=== PATIENT | female | born 1965 | race Caucasian/White ===

== ENCOUNTER 2017-07-15 17:40 | Outpatient (CLI) | payer MEDICAID | END 2017-07-15 17:41 | disposition critical access hospital (66) | LOC: EMS 17:40 | PROVIDERS: ATTEND Surgery | DX: M25.551 Pain in right hip (principal); M25.521 Pain in right elbow; W11.XXXA Fall on and from ladder, initial encounter; Y93.H3 Activity, building and construction; Y92.009 Unspecified place in unspecified non-institutional (private) residence as the place of occurrence of the external cause | CPT/HCPCS: A0425; A0427 ==

== ENCOUNTER 2017-07-15 18:11 | Inpatient (IN) | payer MEDICAID ==
[2017-07-15] MEDS ORDERED: HYDROmorphone 1 MG/ML CARPUJECT IVP STA ×2 (18:28→18:45)
[2017-07-15] MEDS ORDERED: SODIUM CHLORIDE 0.9% 1,000 ML IV ONE (18:28)
[2017-07-15] MEDS ORDERED: HYDROmorphone 1 MG/ML CARPUJECT ONE ×2 (18:32→18:42)
--- NOTE | 2017-07-15 18:32 | ED Physician Documentation ---
PD HPI MAJOR TRAUMA - Stated complaint Stated Complaint: R HIP PX - Chief complaint Chief Complaint: Ext Problem - History obtained from History obtained from: Patient, Family, EMS - History of Present Illness Mechanism of injury: Other (Fall from ladder while working at home onto her right side. Tetanus is unknown. She did not hit her head or blackout. No drug or alcohol use today. She complains of severe right elbow and right hip pain. She has not been able to walk or bear weight since the accident. 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 - Present Medications Home Medications: Ambulatory Orders Medication Instructions Recorded Confirmed Mycophenolate Mofetil [Cellcept] 1,000 mg PO DAILY 07/15/17 07/15/17 Prednisone 5 mg PO DAILY 07/15/17 07/15/17 - Allergies Allergies/Adverse Reactions: Allergies Allergy/AdvReac Type Severity Reaction Status Date / Time No Known Drug Allergies Allergy Verified 07/15/17 18:20 - Social History Does the pt smoke?: Yes Smoking Status: Current every day smoker Does the pt drink ETOH?: Yes Does the pt have substance abuse?: No - Family History Family history: reports: Non contributory PD ED PE NORMAL - Vitals Vital signs reviewed: Yes - General General: Alert and oriented X 3, Other (Clearly in pain) - HEENT HEENT: PERRL, EOMI - Neck Neck: Supple, no meningeal sign, No bony TTP, Other (C-collar maintained pending imaging given distracting injury) - Cardiac Cardiac: RRR, No murmur - Respiratory Respiratory: No respiratory distress - Abdomen Abdomen: Non tender - Back Back: No CVA TTP, No spinal TTP - Extremities Extremities: Other (Right leg is externally rotated and slightly shortened with severe tenderness about the hip, she is holding the right elbow completely flexed and there is an abrasion over the olecranon with tenderness there. The wrist and shoulder are nontender and the remainder of her extremities are nontender. She is neurovascularly intact in the distal portions of all of her 4 extremities.) - Neuro Neuro: Alert and oriented X 3, Normal speech - Psych Psych: Normal mood, Normal affect Results - Vitals Vitals: Vital Signs - 24 hr 07/15/17 18:17 Temperature 37.0 C Heart Rate 74 Respiratory 18 Rate Blood Pressure 136/90 H O2 Saturation 99 Oxygen O2 Source Room air - Rads (name of study) 1v chest Radiology: EMP read contemporaneously (Elevation of the left hemidiaphragm) Three-view right elbow Radiology: EMP read contemporaneously (Proximal ulnar fracture of the olecranon with severe depression displacement, There is a lucency, however examination of the area shows no wound that could represent an open fracture, there is an abrasion but this was explored after the x-ray read and there is nothing that could be an open fracture here.) R hip Radiology: EMP read contemporaneously (Intertrochanteric fracture) Cervical spine CT Radiology: EMP read contemporaneously PD MEDICAL DECISION MAKING - ED course ED course: 51-year-old woman with a fall from a ladder and sustained a right intertrochanteric fracture and a right olecranon fracture both of which will probably need surgical fixation. Spoke with Dr. Masters At 7:20 PM, defers to the hospitalist for admission. Spoke with Dr Canela for admit 1930 Departure - Departure Disposition: 66 [facility] DC/Xfer Clinical Impression: Intertrochanteric fracture of right hip Qualifiers: Encounter type: initial encounter Fracture type: closed Fracture alignment: nondisplaced Qualified Code(s): S72.144A - Nondisplaced intertrochanteric fracture of right femur, initial encounter for closed fracture Fracture of right olecranon process Qualifiers: Encounter type: initial encounter Fracture type: closed Qualified Code(s): S52.021A - Displaced fracture of olecranon process without intraarticular extension of right ulna, initial encounter for closed fracture Fall from ladder Qualifiers: Encounter type: initial encounter Qualified Code(s): W11.XXXA - Fall on and from ladder, initial encounter Condition: Stable
--- NOTE | 2017-07-15 19:18 | XRAY Preliminary Report ---
Exam: XR Chest 1 View IMPRESSION: Mild to moderate elevation left hemidiaphragm. Mild left base airspace disease with media l mild consolidation, could be atelectasis. Lung contusion not excluded. [facility] SITE ID: [id number]
--- NOTE | 2017-07-15 19:20 | XRAY Report ---
EXAM: CHEST RADIOGRAPHY EXAM DATE: 07/15/2017 07:06 PM. CLINICAL HISTORY: Fall from height, preop. COMPARISON: None. TECHNIQUE: 1 view. FINDINGS: Lungs/Pleura: Mild to moderate elevation left hemidiaphragm. Mild left base airspace disease with med ial mild consolidation, could be atelectasis. Lung contusion not excluded. No pleural effusion or pne umothorax. No acute bone findings are seen. Mediastinum: Within exam limitations, cardiomediastinal contour is normal. IMPRESSION: Mild to moderate elevation left hemidiaphragm. Mild left base airspace disease with media l mild consolidation, could be atelectasis. Lung contusion not excluded. [facility] Referring Provider Line: [phone] SITE ID: [id number]
--- NOTE | 2017-07-15 19:21 | XRAY Preliminary Report ---
Exam: XR Elbow 3 View RT IMPRESSION: Acute proximal ulnar fracture at the olecranon with severe displacement, diastases of 2.7 cm. Posterior elbow soft tissue swelling and there is posterior elbow lucency, could represent gas a s seen with a open fracture. Acute radial head fracture at the anterior aspect, nondisplaced. [facility] SITE ID: [id number]
--- NOTE | 2017-07-15 19:22 | XRAY Preliminary Report ---
Exam: XR Hip w/Pelvis 2-3V RT IMPRESSION: 1. Intertrochanteric proximal right femur fracture. [facility] SITE ID: [id number]
--- NOTE | 2017-07-15 19:23 | XRAY Report ---
EXAM: RIGHT ELBOW RADIOGRAPHY EXAM DATE: 07/15/2017 07:08 PM. CLINICAL HISTORY: Right elbow injury. COMPARISON: None. TECHNIQUE: 3 views. FINDINGS: Acute proximal ulnar fracture at the olecranon with severe displacement, diastases of 2.7 c m. Posterior elbow soft tissue swelling and there is posterior elbow lucency, could represent gas as seen with a open fracture. Acute radial head fracture at the anterior aspect, nondisplaced. Elbow joint effusion. No gross dislocation. IMPRESSION: Acute proximal ulnar fracture at the olecranon with severe displacement, diastases of 2.7 cm. Posterior elbow soft tissue swelling and there is posterior elbow lucency, could represent gas a s seen with a open fracture. Acute radial head fracture at the anterior aspect, nondisplaced. [facility] Referring Provider Line: [phone] SITE ID: [id number]
--- NOTE | 2017-07-15 19:25 | XRAY Report ---
EXAM: RIGHT HIP AND PELVIS RADIOGRAPHY EXAM DATE: 07/15/2017 07:08 PM. HISTORY: Injury with hip deformity. COMPARISONS: None. TECHNIQUE: 1 view of the pelvis and 1 view of the hip. FINDINGS: Bones: Positive for an intertrochanteric fracture of the proximal right femur. Joints: Joint space and alignment appears satisfactory. Soft Tissues: Normal. No soft tissue swelling. IMPRESSION: 1. Intertrochanteric proximal right femur fracture. [facility] Referring Provider Line: [phone] SITE ID: [id number]
--- NOTE | 2017-07-15 19:26 | CT Preliminary Report ---
Exam: CT Cervical Spine W/O IMPRESSION: No fracture or subluxation of cervical spine. [facility] SITE ID: [id number]
[2017-07-15] MEDS ORDERED: LORazepam 2 MG/ML SYRINGE ONE (19:27)
--- NOTE | 2017-07-15 19:29 | CT Report ---
EXAM: CT CERVICAL SPINE WITHOUT CONTRAST DATE: 07/15/2017 07:10 PM HISTORY: Fall from height, distracting injury. COMPARISONS: None. TECHNIQUE: Thin-section axial images were acquired of the cervical spine without contrast. Post-proce ssing: Coronal and sagittal reformats. Other: None. In accordance with CT protocol optimization, one or more of the following dose reduction techniques w ere utilized for this exam: automated exposure control, adjustment of mA and/or KV based on patient s ize, or use of iterative reconstructive technique. FINDINGS: Alignment: Normal. No scoliosis or spondylolisthesis. Bones: No fracture or bone lesion. Interspace Levels/Facets: Disk height is maintained. Facet joints appear normal in alignment. Facet joints appear normal. No si gnificant bony central spinal canal stenosis. Musculature: Normal. No fatty atrophy. Other: The paravertebral and prevertebral soft tissues are normal. The lung apices are clear. IMPRESSION: No fracture or subluxation of cervical spine. [facility] Referring Provider Line: [phone] SITE ID: [id number]
[2017-07-15 19:30] LABS: BASOPHILS # (AUTO) 0.1 10^3/uL (0.0-0.1); BASOPHILS % (AUTO) 0.5 %; EOSINOPHILS % (AUTO) 0.2 %; HCT - HEMATOCRIT 33.1 % (37.0-47.0); LYMPHOCYTES # (AUTO) 1.4 10^3/uL (1.5-3.5); LYMPHOCYTES % (AUTO) 11.5 %; MEAN CORPUSCULAR HEMOGLOBIN 31.5 pg (27.0-31.0); MEAN CORPUSCULAR HGB CONC 33.3 g/dL (32.0-36.0); MEAN CORPUSCULAR VOLUME 94.8 fL (81.0-99.0); MONOCYTES # (AUTO) 0.7 10^3/uL (0.0-1.0); MONOCYTES % (AUTO) 6.2 %; NEUTROPHILS # (AUTO) 9.8 10^3/uL (1.5-6.6); NEUTROPHILS % (AUTO) 81.6 %; RED BLOOD COUNT 3.49 10^6/uL (4.20-5.40); RED CELL DISTRIBUTION WIDTH 13.3 % (12.0-15.0)
[2017-07-15 19:39] LABS: INR 1.2 (0.8-1.2); PT - PROTHROMBIN TIME 13.4 secs (9.9-12.6)
[2017-07-15] MEDS ORDERED: ONDANSETRON 4 MG/2 ML VIAL IVP STA (19:45)
[2017-07-15] MEDS ORDERED: LORazepam 2 MG/ML SYRINGE IVP STA (19:45)
[2017-07-15 19:47] LABS: ALBUMIN/GLOBULIN RATIO 1.9 (1.0-2.2); BILIRUBIN,TOTAL 1.1 mg/dL (0.2-1.0); CALCIUM 8.5 mg/dL (8.5-10.3); CREATININE 0.7 mg/dL (0.4-1.0); POTASSIUM 3.1 mmol/L (3.5-5.0); TOTAL PROTEIN 6.3 g/dL (6.7-8.2)
[2017-07-15] MEDS ORDERED: ONDANSETRON 4 MG/2 ML VIAL ONE (20:09)
[2017-07-15] MEDS ORDERED: POTASSIUM BICARB 25 MEQ TABLET PO STA (20:11)
[2017-07-15] MEDS ORDERED: ZOLPIDEM 5 MG TABLET PO PRN (20:19)
[2017-07-15] MEDS ORDERED: POTASSIUM BICARB 25 MEQ TABLET PO ONE (20:48)
[2017-07-15] MEDS ORDERED: POTASSIUM CHLORIDE 20 MEQ TABLET PO SCH (21:27)
[2017-07-15] MEDS: oxyCODONE 5 MG TABLET PO PRN (22:11)
[2017-07-15] MEDS: MYCOPHENOLATE MOFETIL 250 MG CAPSULE PO SCH (22:12)
[2017-07-15] MEDS: POTASSIUM CHLOR 10 MEQ/100 ML 100 ML IV SCH (22:35)
[2017-07-15] MEDS: SODIUM CHLORIDE FLUSH 0.9% 10 ML SYRINGE IVP SCH (22:37)
[2017-07-15] MEDS ORDERED: MAGNESIUM SULFATE 2 GRAM 50 ML IV SCH (23:02)
[2017-07-15] MEDS: LACTATED RINGERS 1,000 ML IV SCH (23:59)
[2017-07-15] MEDS: SODIUM CHLORIDE FLUSH 0.9% 10 ML SYRINGE IVP PRN (23:59)
[2017-07-16] MEDS: MORPHINE 2 MG/ML SYRINGE IVP PRN ×6 (00:04→09:45)
[2017-07-16] MEDS: POTASSIUM CHLOR 10 MEQ/100 ML 100 ML IV SCH (00:30)
[2017-07-16] MEDS: ONDANSETRON 4 MG/2 ML VIAL IVP PRN ×3 (00:33→19:10)
[2017-07-16] MEDS: SODIUM CHLORIDE FLUSH 0.9% 10 ML SYRINGE IVP PRN ×2 (01:12→07:54)
[2017-07-16] MEDS ORDERED: IOPAMIDOL-300 100 ML VIAL IVP ONE (01:32)
--- NOTE | 2017-07-16 01:36 | HISTORY & PHYSICAL EXAMINATION ---
DATE OF ADMISSION: 07/15/2017 CHIEF COMPLAINT: Right-sided hip pain and elbow pain. HISTORY OF PRESENT ILLNESS: The patient is a 51-year-old white female with past medical history of myasthenia gravis, which was diagnosed about 2 years ago, the patient had been under the care of neurologist and has been taking CellCept and small dose prednisone. She underwent thymectomy in 03/02/2016. The patient was in her usual state of health, up to the afternoon of admission, at which time she fell off a ladder and injured her right side. In particular, she suffered a right intertrochanteric hip fracture and an olecranon fracture as well. For both of these fractures she is an operative candidate. The ER physician notified, orthopedic surgeon, Dr. Masters and initially I was told that surgery was not planned immediately and the patient would be evaluated by orthopedic surgeon, Dr. Stout, who would then decide about the timing of surgical management. In any case, I evaluated this patient for her medical problems, admitted her to the hospital and I evaluated her for presurgical clearance. Interviewing the patient was difficult as she received pain medications in the ER and was falling asleep, was quite sedated. The patient's significant other was at the bedside. He was very knowledgeable about the patient's medical issues and provided detailed history. In any case, the significant other and the patient both confirmed and provided history regarding myasthenia gravis; it was diagnosed 2 years ago. The patient has never been intubated and never required hospitalization. However, she had some episodes of dysphagia and mild bulbar symptoms in the past. Last time about a week ago, she had mild dyspnea. She had been on higher prednisone doses; however, she has been titrating down and currently she takes 5 mg daily. She also takes CellCept regularly. Currently , she does not have focal neurologic symptoms and her disease is considered stable. Last time she followed up with her neurologist was in 04/2017. Regarding the circumstance of admission, the patient denied shortness of breath , syncope, chest pain, fever, nausea, vomiting, or any change in her usual state of health. She reported that the fall was clearly mechanical fall, losing balance and falling off a ladder. Regarding the ER course, the patient was received with stable vital signs. However, during the ER stay, she had a hypoxic episode and required supplemental oxygen and at some point her room air oxygen saturation was 88% and subsequently she required 4 L nasal cannula to maintain oxygen saturation in the mid to high 90s. Notably, she did receive increased doses of Dilaudid, given her uncontrolled pain. Regarding her hemodynamics, she had stable heart rate in the 70s, blood pressure was 110/70. Temperature was 37 Celsius. Laboratories showed a slightly elevated white blood cell count 12.0, hemoglobin of 11. Coagulation studies are slightly up with PT of 13.4 and INR 1.2. Potassium was 3.1, carbon dioxide 20. Creatinine was normal at 0.7. Glucose was 106. I an ordered an EKG, which I reviewed for preoperative clearance. It showed sinus rhythm without acute ST abnormality. Chest x-ray showed infiltrates and elevation of the left hemidiaphragm and per the radiology read it was most likely atelectasis, but lung contusion or mild consolidation could not be excluded. The ER physician ordered a CT of the spine as well to clear the patient for cervical spine injury and the CT scan showed no abnormality. X- rays of hip, pelvis and elbow showed the above-mentioned fractures. ALLERGIES: NO KNOWN DRUG ALLERGIES. PAST MEDICAL HISTORY: Myasthenia gravis. Please see details listed above. HOME MEDICATIONS: Included CellCept and prednisone. SOCIAL HISTORY: The patient smokes cigarettes and drinks an alcoholic beverage almost every day. FAMILY HISTORY: Negative for myasthenia gravis. REVIEW OF SYSTEMS: The patient was a poor historian as she was sedated; as much as I could obtain the review other than the mechanical fall and musculoskeletal pain she offered no complaints and a 12-point review was negative. PHYSICAL EXAMINATION: VITAL SIGNS: Listed above. GENERAL: The patient is a well-developed female who looks younger than her age. During my exam, she was somnolent, fell back to sleep easily. CARDIOVASCULAR: S1, S2, regular rate and rhythm. No pathologic murmur. RESPIRATORY: Symmetric excursion of the chest. No obvious chest wall trauma. Good air entry throughout. Respiratory rate during my bedside exam was around 10. The patient was hypoventilating and was sedated; she appeared with appropriate airway protection. ABDOMEN: Soft, benign, nontender. Bowel tones hypoactive. LYMPH: Right lower extremity swollen, otherwise no lymphedema. EXTREMITIES: Right lower extremity and right upper extremity injury and fractures with decreased range of motion. The right lower extremity was swollen ; However, peripheral pulses were palpable on all 4 extremities. NEUROLOGICAL: Sedated but arousable. Nonfocal. PSYCH: Cooperative. SKIN: No jaundice, no pallor. ASSESSMENT AND PLAN: Active issues/diagnoses. 1. Mechanical fall resulting in right olecranon and right intertrochanteric hip fractures, will require surgical repair. 2. Hypoxia: a. It is most likely secondary to opiate use. It is reassuring that on admission , the patient had a normal oxygen saturation. b. Hypoventilation secondary to oversedation. c. Chest x-ray was abnormal, raising the possibility of consolidation versus lung contusion. That will need to be further followed up. 3. History of myasthenia gravis on chronic prednisone therapy, which was recently titrated, I actually was told by the patient's significant other that titration of the prednisone was faster than recommended by neurologist and the patient should likely be on higher dose. Either way during the perioperative period, this patient would likely have need for stress dose IV steroids per standard of care. Would give 50 mg IV hydrocortisone stress dose just prior to the surgery and we would give 25 mg q.8h. for 24 hours in the postoperative period to avoid relative adrenal insufficiency. Regarding other issues of myasthenia gravis, the patient did not report recent history of bulbar symptoms ; however, the patient definitely has a perioperative aspiration risk. Regarding the immunosuppressant medication, the CellCept should be continued and held only on the day of the surgery. Additional recommendation would be to have optimal electrolyte balance, which would include potassium above 4, phosphorus above 4 and magnesium above 2. 4. Abnormal electrolytes including hypokalemia, we will replace potassium. 5. Encephalopathy, altered mental status. This is medication induced secondary to opiates given in the ER. There is no history of head injury and the patient was neurologically nonfocal. If her mental status remains an issue, then I would probably scan her head to make sure that she does not have intracranial hemorrhage secondary to falling off a ladder. PLAN AND ORDERS: 1. I admitted the patient as inpatient under the medical service and orthopedic surgeon will consult. In fact Dr. Nieto contacted me and stated that surgery will be done in the morning of 07/16/2017. Prior to surgery, I would aim to optimize electrolyte balance. I would order a stress dose of steroids. I expect that the patient will be evaluated thoroughly by the anesthesiologist concerning her myasthenia gravis history. In addition, I will order a CT scan of the chest to make sure that there is no lung contusion which could lead to further complications. 2. We will monitor the patient for optimal sedation and for hypoventilation. 3. Aspiration precautions. 4. Diet will be gluten free and dairy free. After midnight. The patient will be n.p.o. expecting surgery the next day. 5. DVT prophylaxis. 6. Regarding preoperative clearance there is no cardiac contraindication. The patient has a risk regarding her myasthenia gravis which would include respiratory muscle problems and difficulty weaning off the ventilator. That obviously will be a post-surgical issue to handle if happens. To optimize her situation, we will give stress dose IV steroid prior to the surgery and depending on the clinical course stress dose steroids can be continued for another 24 hours. That will be deferred to the daytime team to decide. CODE STATUS: FULL CODE. Time spent in the care of this patient was 70 minutes. JOB #: [id number] EXT JOB #:[id number] JOHNATHAN
--- NOTE | 2017-07-16 02:55 | CT Preliminary Report ---
Exam: CT Chest W/ IMPRESSION: 1. Small left upper lobe posterior laterally located pulmonary contusion noted. 2. There is medium-sized left lower lobe streaky airspace disease and small streaky right lower lobe airspace disease. These may be from atelectasis. Aspiration and/or developing pneumonia difficult to exclude. 3. Subtle tiny lucency within the anterior aspect of the left upper chest felt to represent artifact. Cannot exclude a subtle pneumothorax with certainty. Follow-up expiratory chest x-ray recommended at 6 hours. 4. Subtle deformity of the posterior aspect of the left second rib at the costovertebral junction, po tentially a nondisplaced fracture. [facility] SITE ID: [id number]
--- NOTE | 2017-07-16 03:01 | CT Report ---
EXAM: CT CHEST EXAM DATE: 07/16/2017 01:41 AM. CLINICAL HISTORY: Fall, abnormal opacity within the left lung base region. Further assessment and aiyana racterization. COMPARISONS: Chest x-ray 07/15/2017 TECHNIQUE: Routine helical CT imaging was performed through the chest. IV contrast: 100 mL Isovue-300 . Reconstructions: Coronal and sagittal. In accordance with CT protocol optimization, one or more of the following dose reduction techniques w ere utilized for this exam: automated exposure control, adjustment of mA and/or KV based on patient s ize, or use of iterative reconstructive technique. FINDINGS: Lungs and Pleura: Medium-sized streaky left lower lobe airspace disease and small streaky right lower lobe airspace disease are noted. There is mild subpleural groundglass opacity within the midportion of the left upper lobe. Equivocal tiny anterior left upper chest pneumothorax. I favor artifact from the adjacent high density contrast in ribs. Central Airways: Visualized central airways are without suspicious filling defects. Chest Wall: No significant abnormality. Thyroid: No significant abnormality. Mediastinum: No significant abnormality. Heart: Normal in size. No significant pericardial effusion. Aorta: Normal caliber. Upper Abdomen: Nonspecific moderate distention of the gallbladder. No evident calcified stones. This could be due to fasting. There is a somewhat heterogeneous low-density abnormality within the central aspect of the liver in segment 8 measuring 2.1 cm (image 48 series 3). Bones: No suspicious bony lesions evident. Nondisplaced fracture left second rib fracture (image 6 se sara 4) suspected. IMPRESSION: 1. Small left upper lobe posterior laterally located pulmonary contusion noted. 2. There is medium-sized left lower lobe streaky airspace disease and small streaky right lower lobe airspace disease. These may be from atelectasis. Aspiration and/or developing pneumonia difficult to exclude. 3. Subtle tiny lucency within the anterior aspect of the left upper chest felt to represent artifact. Cannot exclude a subtle pneumothorax with certainty. Follow-up expiratory chest x-ray recommended at 6 hours. 4. Subtle deformity of the posterior aspect of the left second rib at the costovertebral junction, po tentially a nondisplaced fracture. [facility] Referring Provider Line: [phone] SITE ID: [id number]
[2017-07-16] MEDS: AMPICILLIN/SULBACTAM 1.5 GM in SODIUM CHLORIDE 0.9% MINIBAG 100 ML IV SCH ×3 (05:26→18:12)
[2017-07-16] MEDS: SODIUM CHLORIDE FLUSH 0.9% 10 ML SYRINGE IVP SCH ×3 (05:27→21:12)
[2017-07-16] MEDS: PANTOPRAZOLE 40 MG TABLET PO SCH (05:45)
[2017-07-16 06:59] LABS: BILIRUBIN,URINE NEGATIVE (NEGATIVE); PH,URINE 6.5 PH (5.0-7.5)
[2017-07-16 08:11] LABS: WBC,URINE >25 /HPF (0-5)
[2017-07-16 08:12] LABS: UR CULTURE IF IND INDICATED
[2017-07-16] MEDS: POLYETHYLENE GLYCOL 3350 17 GM PACKET PO SCH (09:12)
[2017-07-16] MEDS: ENOXAPARIN 40 MG/0.4 ML SYRINGE SUBQ SCH (09:12)
[2017-07-16] MEDS: MYCOPHENOLATE MOFETIL 250 MG CAPSULE PO SCH ×2 (10:29→21:18)
[2017-07-16] MEDS: predniSONE 5 MG TABLET PO SCH (10:29)
[2017-07-16] MEDS ORDERED: HYDROCORTISONE SUCCINATE 100 MG/2 ML VIAL IVP SCH (10:30)
--- NOTE | 2017-07-16 10:43 | XRAY Report ---
FRONTAL CHEST: 07/16/2017 CLINICAL INDICATION: Followup, status post trauma. COMPARISON: CT of 07/16/2017, plain film of 07/15/2017. FINDINGS: Frontal expiratory view of the chest demonstrates no pneumothorax. Basilar atelectasis is present. Pulmonary contusion seen on CT is poorly visualized on plain film, due to expiratory techniq ue. IMPRESSION: NO EVIDENCE OF PNEUMOTHORAX. JOB #: [id number] EXT JOB #:[id number]
[2017-07-16] MEDS ORDERED: HYDROmorphone 1 MG/ML CARPUJECT IVP STA ×2 (11:27→11:33)
[2017-07-16 12:16] LABS: HCG UR QUAL NEGATIVE
[2017-07-16] MEDS ORDERED: KETOROLAC 30 MG/ML VIAL IVP ONE (13:09)
[2017-07-16] MEDS ORDERED: ePHEDrine 50 MG/ML VIAL IVP ONE (13:09)
[2017-07-16] MEDS ORDERED: ACETAMINOPHEN 1,000 MG/100 ML 100 ML IV ONE (13:09)
[2017-07-16] MEDS ORDERED: fentaNYL 100 MCG/2 ML VIAL IVP ONE (13:09)
[2017-07-16] MEDS ORDERED: ONDANSETRON 4 MG/2 ML VIAL IVP ONE (13:09)
[2017-07-16] MEDS ORDERED: HYDROCORTISONE SUCCINATE 100 MG/2 ML VIAL IVP ONE (13:09)
[2017-07-16] MEDS ORDERED: BUPIVACAINE 0.5%-EPI 1:200000 PF 30 ML VIAL SUBQ ONE ×3 (13:15→15:11)
[2017-07-16] MEDS ORDERED: LACTATED RINGERS 1,000 ML IV ONE ×4 (13:21→15:14)
--- NOTE | 2017-07-16 16:28 | XRAY Preliminary Report ---
Exam: XR Elbow 2 View RT IMPRESSION: 1. ORIF olecranon fracture. [facility] SITE ID: [id number]
--- NOTE | 2017-07-16 16:31 | XRAY Report ---
EXAM: RIGHT ELBOW RADIOGRAPHY EXAM DATE: 07/16/2017 11:20 AM. CLINICAL HISTORY: Right elbow fracture fixation. COMPARISON: Right elbow series history. TECHNIQUE: 2 views (4 images), intraoperative. Fluoroscopy time: 26 seconds. FINDINGS: Interval ORIF with placement of compression plate and multiple screws bridging the olecrano n fracture to gross anatomic position. Stable subtle impaction fracture of ventral radial neck. IMPRESSION: 1. ORIF olecranon fracture. [facility] Referring Provider Line: [phone] SITE ID: [id number]
--- NOTE | 2017-07-16 16:32 | XRAY Preliminary Report ---
Exam: XR Hip w/Pelvis 2-3V RT IMPRESSION: 1. ORIF intertrochanteric fracture. [facility] SITE ID: [id number]
--- NOTE | 2017-07-16 16:34 | XRAY Report ---
EXAM: RIGHT HIP RADIOGRAPHY EXAM DATE: 07/16/2017 04:07 PM. CLINICAL HISTORY: ORIF right hip fracture. COMPARISON: 07/15/2017. TECHNIQUE: 2 views (4 images), intraoperative. Fluoroscopy time: 37 seconds. FINDINGS: Interval reduction and placement of long antegrade intramedullary nail with a proximal inte rlocking device to the femoral head bridging the intertrochanteric fracture to gross anatomic alignme nt. IMPRESSION: 1. ORIF intertrochanteric fracture. [facility] Referring Provider Line: [phone] SITE ID: [id number]
--- NOTE | 2017-07-16 16:54 | OPERATIVE REPORT ---
Operative Report - General Admit Date: 07/15/17 Procedure Date: 07/16/17 Planned Procedure: 1. IM Nailing R Intertrochanteric Fracture 2. ORIF R Olecranon Fracture Pre-Op Diagnosis: 1. R Hip Intertrochanteric Fx 2. Displaced, Closed Right Olecranon Fx Procedure Performed: Same. Post Op Diagnosis: Same - Procedure Note Primary Surgeon: Shilo Nieto MD Anesthesia Provider: Lana Adam CRNA Anesthesia Technique: General ET tube, Local Pathology: Same. IV Fluids (mL): 2,000 (LR) Estimated Blood Loss (mL): 150 Complications: None. - Other Other Information/Narrative: Disposition: PACU >> Med Surg Condition: Stable Implants: 1. Right Hip: Amanuel Natural Nail, 11.5 x 400 mm nail. 6.5 x 85 mm Lag Screw. Right Olecranon: Acumed Olecranon Plate 4 hole locking w/ appropriate screws.
--- NOTE | 2017-07-16 17:07 | CONSULTATION NOTE ---
Referring Provider Name of Referring Provider:: Senthil Babcock MD Consult Date: 07/16/17 Chief Complaint - Chief Complaint Chief Complaint: Fall from ladder resulting in pelvis, R Hip, and R Elbow Injuries History of Present Illness - Admitted From Admitted From:: ED - History Obtained From Records Reviewed: ED History obtained from: Patient and significant other - History of Present Illness HPI Comment/Other: 51 yo female was assisting in raising a steel cross beam on a ladder when she lost her balance and fell, sustaining injuries to her Right Hip , Elbow, pelvis , and Wrist. She was brought by EMS to [facility] ED where radiographic evaluation was performed revealin. Right Superior and Inferior Pubic rami fractures, closed, nondisplaced. 2. Right Hip Inrtertrochanteric Fracture. 3. Displaced, closed Right Olecranon Fracture. Patient denies Loss of Consciousness or other significant injuries. She was splinted and stabilized and admitted to the Hospitalist Service with consultation to Orthopaedic Surgery to evaluate her musculoskeletal injuries. History - Past Medical History Endocrine/Autoimmune: reports: Other (Myesthenia Gravis, s/p Thymectomy and on chronic seroids.) Other Past Medical History: myesthenia gravis - Past Surgical History /[employer]: reports: Tubal ligation Other past surgical history: Thymectomy - Family & Social History Living arrangement: At home Living Situation: With spouse/s.o. - Substance History Use: Uses substance without health or social issues: NONE Abuse: Recurrent use of substance despite neg consequences: NONE - POLST Patient has POLST: No POLST Status: Full Code Meds/Allgy - Home Medications Home Medications: Ambulatory Orders Medication Instructions Recorded Confirmed Mycophenolate Mofetil [Cellcept] 1,500 mg PO DAILY 07/15/17 07/15/17 Mycophenolate Mofetil 1,000 mg PO DAILY PM 07/15/17 07/15/17 [Mycophenolate Mofetil] Prednisone 5 mg PO DAILY 07/15/17 07/15/17 - Allergies Allergies/Adverse Reactions: Allergies Allergy/AdvReac Type Severity Reaction Status Date / Time No Known Drug Allergies Allergy Verified 07/15/17 18:20 Review of Systems - Constitutional Constitutional: reports: Fatigue, Weakness - Eyes Eyes: reports: Blurred vision - Musculoskeletal Musculoskeletal: reports: Muscle weakness - All Other Systems All Other Systems: reports: Reviewed and negative Exam - Vital Signs Reviewed Vital Signs: Yes Vital Signs: Vital Signs x48h Pulse Ox 07/16/17 16:55 98 07/16/17 16:50 100 07/16/17 16:46 100 07/16/17 16:40 100 07/16/17 16:35 100 07/16/17 16:30 98 07/16/17 16:29 98 - Physical Exam General Appearance: positive: Moderate distress Eyes Bilateral: positive: Normal inspection ENT: positive: ENT inspection nml Neck: positive: Nml inspection Respiratory: positive: No respiratory distress, Breath sounds nml Cardiovascular: positive: Regular rate & rhythm Peripheral Pulses: positive: 2+ Abdomen: positive: Non-tender, Nml bowel sounds, No distention. negative: Guarding Back: positive: Nml inspection Skin: positive: Color nml, No rash, Warm, Dry Extremities: positive: Other (tenderness with external rotation deformity of right hip. Marked echymosis and tenderness with 2+ swellinjhg about the Right Elbow.). negative: Pedal edema, Calf tenderness, May's sign/cords Neurologic/Psychiatric: positive: Oriented x3, Motor nml, Sensation nml, Mood/ affect nml Conclusion/Plan - Diagnosis Diagnosis: 1. Right Hip Intertrochanteric Fracture, 3 part, closed, displaced. 2. Closed, displaced Right Olecranon Fracture. 3. Closed, Nondisplaced Right superior and Inferior pubic Rami Fractures. 4. Right Wrist Injury. 5. Fall from Ladder. - Plan Plan: To OR for ORIF Right Olecranon Fracture and Cephallomedullary Nailing Right Intertrochanteric Fracture. - Lab Results Lab results reviewed: Yes Fish Bones: 07/15/17 19:18 07/15/17 19:18 - Diagnostic Imaging Results Diagnostic Imaging Results: positive: Read independently
[2017-07-16] MEDS ORDERED: ACETAMINOPHEN 325 MG TABLET PO PRN (17:19)
[2017-07-16] MEDS ORDERED: ACETAMINOPHEN 1,000 MG/100 ML 100 ML IV PRN (17:22)
[2017-07-16] MEDS: HYDROmorphone PCA 10 MG IV PRN (18:38)
--- NOTE | 2017-07-16 18:38 | PROVIDER PROGRESS NOTE ---
Assessment/Plan - Problem List (1) Myasthenia gravis Assessment/Plan: stable currently (2) Pulmonary contusion Qualifiers: Encounter type: subsequent encounter Assessment/Plan: No SOB, even after anesthesia. Continue to monitor (3) Intertrochanteric fracture of right hip Qualifiers: Encounter type: subsequent encounter Fracture type: closed Fracture alignment: nondisplaced Qualified Code(s): S72.144A - Nondisplaced intertrochanteric fracture of right femur, initial encounter for closed fracture Assessment/Plan: Had ORIF today (4) Fracture of right olecranon process Qualifiers: Encounter type: subsequent encounter Fracture type: closed Qualified Code (s): S52.021A - Displaced fracture of olecranon process without intraarticular extension of right ulna, initial encounter for closed fracture Assessment/Plan: Had orthopedic surgery today - Current Meds Current Meds: Current Medications Generic Name Dose Route Start Last Admin Trade Name Freq PRN Reason Stop Dose Admin Enoxaparin Sodium 40 mg 07/16/17 09:00 07/16/17 09:12 Lovenox SUBQ Not Given DAILY WARREN Lactated Ringer's 1,000 mls @ 70 mls/hr 07/15/17 23:45 07/15/17 23:59 Lr IV 70 mls/hr .[id number] WARREN Administration Mycophenolate Mofetil 1,500 mg 07/15/17 21:00 07/15/17 22:12 PO 1,500 mg QPM WARREN Administration Mycophenolate Mofetil 1,000 mg 07/16/17 09:00 07/16/17 10:29 PO Not Given DAILY WARREN Ondansetron HCl 4 mg 07/15/17 20:19 07/16/17 05:36 Zofran Inj IVP 4 mg Q6HR PRN Administration Nausea / Vomiting Oxycodone HCl 5 mg 07/15/17 20:19 07/15/17 22:11 Roxicodone PO 5 mg Q4HR PRN Administration Pain 5 to 7 Pantoprazole Sodium 40 mg 07/16/17 07:00 07/16/17 05:45 Protonix PO Not Given QDAC WARREN Polyethylene Glycol 17 gm 07/16/17 09:00 07/16/17 09:12 Miralax PO Not Given DAILY WARREN Prednisone 5 mg 07/16/17 09:00 07/16/17 10:29 Deltasone PO Not Given DAILY WARREN Sodium Chloride 10 ml 07/15/17 20:19 07/16/17 07:54 Normal Saline Flush 0.9% IVP 10 ml PRN PRN Administration NEEDED PER PROVIDER ORDERS Sodium Chloride 10 ml 07/15/17 22:00 07/16/17 13:42 Normal Saline Flush 0.9% IVP Not Given Q8HR WARREN - Lab Result Fish Bone Diagrams: 07/15/17 19:18 07/15/17 19:18 Subjective - Subjective Patient Reports: Feeling Better Nursing Reports: Other (S/P ORIF and elbow surgery) Objective Vital Signs: Vital Signs - 24 hr 07/15/17 07/15/17 07/16/17 20:32 21:20 00:08 Temperature 36.8 C 36.8 C Heart Rate 74 Heart Rate [ 96 71 Radial] Respiratory 20 8 L 18 Rate Blood Pressure 102/67 Blood Pressure 105/64 123/78 [Left Brachial artery] O2 Saturation 100 100 100 07/16/17 07/16/17 07/16/17 05:49 08:40 16:29 Temperature 37.0 C 37.2 C Heart Rate Heart Rate [ 74 64 Radial] Respiratory 18 16 Rate Blood Pressure Blood Pressure 99/81 H 104/61 [Left Brachial artery] O2 Saturation 99 95 98 07/16/17 07/16/17 07/16/17 16:30 16:35 16:40 Temperature Heart Rate Heart Rate [ Radial] Respiratory Rate Blood Pressure Blood Pressure [Left Brachial artery] O2 Saturation 98 100 100 07/16/17 07/16/17 07/16/17 16:46 16:50 16:55 Temperature Heart Rate Heart Rate [ Radial] Respiratory Rate Blood Pressure Blood Pressure [Left Brachial artery] O2 Saturation 100 100 98 07/16/17 07/16/17 07/16/17 17:00 17:05 17:11 Temperature Heart Rate Heart Rate [ Radial] Respiratory Rate Blood Pressure Blood Pressure [Left Brachial artery] O2 Saturation 99 99 99 07/16/17 07/16/17 07/16/17 17:15 17:26 17:32 Temperature Heart Rate Heart Rate [ Radial] Respiratory Rate Blood Pressure Blood Pressure [Left Brachial artery] O2 Saturation 99 100 100 07/16/17 07/16/17 17:47 18:09 Temperature 36.7 C 36.6 C Heart Rate Heart Rate [ 81 82 Radial] Respiratory 16 20 Rate Blood Pressure Blood Pressure 123/69 109/63 [Left Brachial artery] O2 Saturation 100 97 Oxygen O2 Source Nasal cannula I&O (Last 24 Hrs): Intake and Output Totals x24h 07/14/17 07/15/17 07/16/17 23:59 23:59 23:59 Intake Total 1004 Output Total 1200 Balance -196 General: Other (Lethargic from anesthesia) HEENT: Mucous membr. moist/pink Neck: Supple Neuro: Oriented Times 3 Cardiovascular: Regular rate Respiratory: No respiratory distress Extremities: No edema - Results Results: Laboratory Results WBC 12.0 x10^3/uL (4.8-10.8) H 07/15/17 19:18 RBC 3.49 10^6/uL (4.20-5.40) L 07/15/17 19:18 Hgb 11.0 g/dL (12.0-16.0) L 07/15/17 19:18 Hct 33.1 % (37.0-47.0) L 07/15/17 19:18 MCV 94.8 fL (81.0-99.0) 07/15/17 19:18 MCH 31.5 pg (27.0-31.0) H 07/15/17 19:18 MCHC 33.3 g/dL (32.0-36.0) 07/15/17 19:18 RDW 13.3 % (12.0-15.0) 07/15/17 19:18 Plt Count 238 10^3/uL (130-450) 07/15/17 19:18 MPV 7.0 fL (7.9-10.8) L 07/15/17 19:18 Neut # 9.8 10^3/uL (1.5-6.6) H 07/15/17 19:18 Lymph # 1.4 10^3/uL (1.5-3.5) L 07/15/17 19:18 [place] # 0.7 10^3/uL (0.0-1.0) 07/15/17 19:18 Eos # 0.0 10^3/uL (0.0-0.7) 07/15/17 19:18 Baso # 0.1 10^3/uL (0.0-0.1) 07/15/17 19:18 Absolute Nucleated RBC 0.00 x10^3/uL 07/15/17 19:18 Nucleated RBCs 0.0 /100WBC 07/15/17 19:18 PT 13.4 secs (9.9-12.6) H 07/15/17 19:18 INR 1.2 (0.8-1.2) 07/15/17 19:18 Sodium 135 mmol/L (135-145) 07/15/17 19:18 Potassium 3.1 mmol/L (3.5-5.0) L 07/15/17 19:18 Chloride 105 mmol/L (101-111) 07/15/17 19:18 Carbon Dioxide 20 mmol/L (21-32) L 07/15/17 19:18 Anion Gap 10.0 (6-13) 07/15/17 19:18 BUN 12 mg/dL (6-20) 07/15/17 19:18 Creatinine 0.7 mg/dL (0.4-1.0) 07/15/17 19:18 Estimated GFR (MDRD) 88 (>89) L 07/15/17 19:18 Glucose 106 mg/dL (70-100) H 07/15/17 19:18 Calcium 8.5 mg/dL (8.5-10.3) 07/15/17 19:18 Phosphorus 2.9 mg/dL (2.5-4.6) 07/15/17 19:18 Magnesium 1.7 mg/dL (1.7-2.8) 07/15/17 19:18 Total Bilirubin 1.1 mg/dL (0.2-1.0) H 07/15/17 19:18 AST 25 IU/L (10-42) 07/15/17 19:18 ALT 27 IU/L (10-60) 07/15/17 19:18 Alkaline Phosphatase 46 IU/L (42-121) 07/15/17 19:18 Total Protein 6.3 g/dL (6.7-8.2) L 07/15/17 19:18 Albumin 4.1 g/dL (3.2-5.5) 07/15/17 19:18 Globulin 2.2 g/dL (2.1-4.2) 07/15/17 19:18 Albumin/Globulin Ratio 1.9 (1.0-2.2) 07/15/17 19:18 Lipase 23 U/L (22-51) 07/15/17 19:18 Urine Color YELLOW 07/16/17 05:48 Urine Clarity CLEAR (CLEAR) 07/16/17 05:48 Urine pH 6.5 PH (5.0-7.5) 07/16/17 05:48 Ur Specific [place] 1.015 (1.002-1.030) 07/16/17 05:48 Urine Protein NEGATIVE mg/dL (NEGATIVE) 07/16/17 05:48 Urine Glucose (UA) NEGATIVE mg/dL (NEGATIVE) 07/16/17 05:48 Urine Ketones NEGATIVE mg/dL (NEGATIVE) 07/16/17 05:48 Urine Occult Blood SMALL (NEGATIVE) H 07/16/17 05:48 Urine Nitrite NEGATIVE (NEGATIVE) 07/16/17 05:48 Urine Bilirubin NEGATIVE (NEGATIVE) 07/16/17 05:48 Urine Urobilinogen 0.2 (NORMAL) E.U./dL (NORMAL) 07/16/17 05:48 Ur Leukocyte Esterase NEGATIVE (NEGATIVE) 07/16/17 05:48 Urine RBC 0-5 /HPF (0-5) 07/16/17 05:48 Urine WBC >25 /HPF (0-5) H 07/16/17 05:48 Ur Epithelial Cells RARE Renal Tubular /HPF (<= Few) 07/16/17 05:48 Ur Squamous Epith Cells RARE Squamous (<= Few) 07/16/17 05:48 Urine Bacteria Rare /HPF (None Seen) 07/16/17 05:48 Urine Culture Comments INDICATED 07/16/17 05:48 Urine HCG, Qual NEGATIVE 07/16/17 05:48 Blood Type A POSITIVE 07/15/17 19:18 Antibody Screen NEGATIVE 07/15/17 19:18
[2017-07-16] MEDS: ceFAZolin 2 GM/50 ML 50 ML IV SCH ×2 (19:04→23:45)
[2017-07-16] MEDS ORDERED: SODIUM CHLORIDE 0.9% 500 ML IV ONE (23:40)
[2017-07-17] MEDS ORDERED: MORPHINE 2 MG/ML SYRINGE ONE (05:21)
[2017-07-17] MEDS ORDERED: SODIUM CHLORIDE FLUSH 0.9% 10 ML SYRINGE IVP ONE (05:21)
[2017-07-17] MEDS: KETOROLAC 30 MG/ML VIAL IVP PRN ×3 (05:34→23:32)
[2017-07-17] MEDS: ONDANSETRON 4 MG/2 ML VIAL IVP PRN (05:39)
[2017-07-17] MEDS: ceFAZolin 2 GM/50 ML 50 ML IV SCH (05:40)
[2017-07-17] MEDS: PANTOPRAZOLE 40 MG TABLET PO SCH (06:20)
[2017-07-17] MEDS: SODIUM CHLORIDE FLUSH 0.9% 10 ML SYRINGE IVP SCH ×3 (06:23→20:52)
[2017-07-17] MEDS: LACTATED RINGERS 1,000 ML IV SCH (07:46)
[2017-07-17] MEDS: ENOXAPARIN 40 MG/0.4 ML SYRINGE SUBQ SCH (09:08)
[2017-07-17] MEDS: predniSONE 5 MG TABLET PO SCH (09:08)
[2017-07-17] MEDS: MYCOPHENOLATE MOFETIL 250 MG CAPSULE PO SCH ×2 (09:09→10:28)
[2017-07-17] MEDS ORDERED: PROCHLORPERAZINE INJ 10 MG in SODIUM CHLORIDE 0.9% 50 ML IV PRN (09:09)
[2017-07-17] MEDS: POLYETHYLENE GLYCOL 3350 17 GM PACKET PO SCH (09:09)
[2017-07-17] MEDS ORDERED: PROCHLORPERAZINE 10 MG/2 ML VIAL IVP PRN (09:13)
[2017-07-17 11:17] LABS: CALCIUM 7.8 mg/dL (8.5-10.3); CREATININE 0.7 mg/dL (0.4-1.0); POTASSIUM 3.8 mmol/L (3.5-5.0)
[2017-07-17] MEDS: HYDROmorphone PCA 10 MG IV PRN (15:45)
--- NOTE | 2017-07-17 17:07 | PROVIDER PROGRESS NOTE ---
Assessment/Plan - Problem List (1) Myasthenia gravis Assessment/Plan: No new issues (2) Intertrochanteric fracture of right hip Qualifiers: Encounter type: subsequent encounter Fracture type: closed Fracture alignment: nondisplaced Assessment/Plan: Pt has pain (diffusely) and using ROLL SCALE WORKER pump, which is causing severe nausea. Will add Compazine. Continue ROLL SCALE WORKER pump. OOB to chair today per Dr Everett Nieto (3) Fracture of right olecranon process Qualifiers: Encounter type: subsequent encounter Fracture type: closed Assessment/Plan: Same plan as above. (4) Left pulmonary contusion Assessment/Plan: Pt not SOB or splinting. Will start Incentive spirometry today - Current Meds Current Meds: Current Medications Generic Name Dose Route Start Last Admin Trade Name Freq PRN Reason Stop Dose Admin Enoxaparin Sodium 40 mg 07/16/17 09:00 07/17/17 09:08 Lovenox SUBQ 40 mg DAILY WARREN Administration Hydromorphone HCl 10 mg 07/16/17 17:19 07/17/17 15:45 Dilaudid Compact Assembler (Use Compact Assembler Order Set) IV 10 mg PRN PRN Administration PAIN Protocol Ketorolac Tromethamine 30 mg 07/16/17 17:19 07/17/17 16:28 Toradol Inj IVP 07/18/17 17:18 30 mg Q6HR PRN Administration PAIN Mycophenolate Mofetil 1,500 mg 07/17/17 10:30 07/17/17 10:28 PO 1,500 mg DAILY WARREN Administration Ondansetron HCl 4 mg 07/15/17 20:19 07/17/17 05:39 Zofran Inj IVP 4 mg Q6HR PRN Administration Nausea / Vomiting Oxycodone HCl 5 mg 07/15/17 20:19 07/15/17 22:11 Roxicodone PO 5 mg Q4HR PRN Administration Pain 5 to 7 Pantoprazole Sodium 40 mg 07/16/17 07:00 07/17/17 06:20 Protonix PO Not Given QDAC WARREN Polyethylene Glycol 17 gm 07/16/17 09:00 07/17/17 09:09 Miralax PO Not Given DAILY WARREN Prednisone 5 mg 07/16/17 09:00 07/17/17 09:08 Deltasone PO 5 mg DAILY WARREN Administration Prochlorperazine Edisylate 10 mg 07/17/17 09:13 07/17/17 10:28 Compazine Inj IVP 10 mg Q4HR PRN Administration Nausea / Vomiting Sodium Chloride 10 ml 07/15/17 20:19 07/16/17 07:54 Normal Saline Flush 0.9% IVP 10 ml PRN PRN Administration NEEDED PER PROVIDER ORDERS Sodium Chloride 10 ml 07/15/17 22:00 07/17/17 12:58 Normal Saline Flush 0.9% IVP Not Given Q8HR WARREN - Lab Result Fish Bone Diagrams: 07/15/17 19:18 07/17/17 11:00 - Additional Planning My Orders: My Active Orders 07/17/17 Evaluate and Treat PT [PT] Routine 07/17/17 09:13 Prochlorperazine Inj [Compazine Inj] 10 mg IVP Q4HR PRN 07/18/17 09:00 Docusate Sodium 250Mg Capsule [Colace 250Mg Capsule] 250 - 500 mg PO DAILY Senna [Senokot] 8.6 - 17.2 mg PO DAILY Objective Vital Signs: Vital Signs - 24 hr 07/16/17 07/16/17 07/16/17 17:11 17:15 17:26 Temperature Heart Rate [ Radial] Respiratory Rate Blood Pressure [Left Brachial artery] O2 Saturation 99 99 100 07/16/17 07/16/17 07/16/17 17:32 17:47 18:09 Temperature 36.7 C 36.6 C Heart Rate [ 81 82 Radial] Respiratory 16 20 Rate Blood Pressure 123/69 109/63 [Left Brachial artery] O2 Saturation 100 100 97 07/16/17 07/16/17 07/16/17 18:39 19:13 19:39 Temperature 36.9 C 37.2 C Heart Rate [ 78 82 Radial] Respiratory 18 16 18 Rate Blood Pressure 103/64 106/63 [Left Brachial artery] O2 Saturation 99 98 98 07/16/17 07/16/17 07/17/17 20:37 22:29 00:39 Temperature 37.4 C 36.9 C Heart Rate [ 86 70 Radial] Respiratory 20 16 18 Rate Blood Pressure 98/56 L 99/56 L [Left Brachial artery] O2 Saturation 95 96 07/17/17 07/17/17 07/17/17 02:00 05:42 08:10 Temperature 36.9 C Heart Rate [ 77 Radial] Respiratory 16 20 16 Rate Blood Pressure 94/52 L [Left Brachial artery] O2 Saturation 96 07/17/17 07/17/17 07/17/17 08:13 11:10 14:54 Temperature 36.5 C 36.9 C 37.5 C Heart Rate [ 74 72 75 Radial] Respiratory 16 17 16 Rate Blood Pressure 89/52 L 100/71 108/60 [Left Brachial artery] O2 Saturation 95 96 95 07/17/17 07/17/17 15:16 16:38 Temperature 37.3 C Heart Rate [ 72 Radial] Respiratory 16 16 Rate Blood Pressure 98/58 L [Left Brachial artery] O2 Saturation 96 Oxygen O2 Source Nasal cannula I&O (Last 24 Hrs): Intake and Output Totals x24h 07/15/17 07/16/17 07/17/17 23:59 23:59 23:59 Intake Total 1838 2110 Output Total 1600 2000 Balance 238 110 - Results Results: Laboratory Results WBC 12.0 x10^3/uL (4.8-10.8) H 07/15/17 19:18 RBC 3.49 10^6/uL (4.20-5.40) L 07/15/17 19:18 Hgb 11.0 g/dL (12.0-16.0) L 07/15/17 19:18 Hct 33.1 % (37.0-47.0) L 07/15/17 19:18 MCV 94.8 fL (81.0-99.0) 07/15/17 19:18 MCH 31.5 pg (27.0-31.0) H 07/15/17 19:18 MCHC 33.3 g/dL (32.0-36.0) 07/15/17 19:18 RDW 13.3 % (12.0-15.0) 07/15/17 19:18 Plt Count 238 10^3/uL (130-450) 07/15/17 19:18 MPV 7.0 fL (7.9-10.8) L 07/15/17 19:18 Neut # 9.8 10^3/uL (1.5-6.6) H 07/15/17 19:18 Lymph # 1.4 10^3/uL (1.5-3.5) L 07/15/17 19:18 [place] # 0.7 10^3/uL (0.0-1.0) 07/15/17 19:18 Eos # 0.0 10^3/uL (0.0-0.7) 07/15/17 19:18 Baso # 0.1 10^3/uL (0.0-0.1) 07/15/17 19:18 Absolute Nucleated RBC 0.00 x10^3/uL 07/15/17 19:18 Nucleated RBCs 0.0 /100WBC 07/15/17 19:18 PT 13.4 secs (9.9-12.6) H 07/15/17 19:18 INR 1.2 (0.8-1.2) 07/15/17 19:18 Sodium 126 mmol/L (135-145) L 07/17/17 11:00 Potassium 3.8 mmol/L (3.5-5.0) 07/17/17 11:00 Chloride 95 mmol/L (101-111) L 07/17/17 11:00 Carbon Dioxide 25 mmol/L (21-32) 07/17/17 11:00 Anion Gap 6.0 (6-13) 07/17/17 11:00 BUN 10 mg/dL (6-20) 07/17/17 11:00 Creatinine 0.7 mg/dL (0.4-1.0) 07/17/17 11:00 Estimated GFR (MDRD) 88 (>89) L 07/17/17 11:00 Glucose 109 mg/dL (70-100) H 07/17/17 11:00 Calcium 7.8 mg/dL (8.5-10.3) L 07/17/17 11:00 Phosphorus 2.9 mg/dL (2.5-4.6) 07/15/17 19:18 Magnesium 1.7 mg/dL (1.7-2.8) 07/15/17 19:18 Total Bilirubin 1.1 mg/dL (0.2-1.0) H 07/15/17 19:18 AST 25 IU/L (10-42) 07/15/17 19:18 ALT 27 IU/L (10-60) 07/15/17 19:18 Alkaline Phosphatase 46 IU/L (42-121) 07/15/17 19:18 Total Protein 6.3 g/dL (6.7-8.2) L 07/15/17 19:18 Albumin 4.1 g/dL (3.2-5.5) 07/15/17 19:18 Globulin 2.2 g/dL (2.1-4.2) 07/15/17 19:18 Albumin/Globulin Ratio 1.9 (1.0-2.2) 07/15/17 19:18 Lipase 23 U/L (22-51) 07/15/17 19:18 Urine Color YELLOW 07/16/17 05:48 Urine Clarity CLEAR (CLEAR) 07/16/17 05:48 Urine pH 6.5 PH (5.0-7.5) 07/16/17 05:48 Ur Specific [place] 1.015 (1.002-1.030) 07/16/17 05:48 Urine Protein NEGATIVE mg/dL (NEGATIVE) 07/16/17 05:48 Urine Glucose (UA) NEGATIVE mg/dL (NEGATIVE) 07/16/17 05:48 Urine Ketones NEGATIVE mg/dL (NEGATIVE) 07/16/17 05:48 Urine Occult Blood SMALL (NEGATIVE) H 07/16/17 05:48 Urine Nitrite NEGATIVE (NEGATIVE) 07/16/17 05:48 Urine Bilirubin NEGATIVE (NEGATIVE) 07/16/17 05:48 Urine Urobilinogen 0.2 (NORMAL) E.U./dL (NORMAL) 07/16/17 05:48 Ur Leukocyte Esterase NEGATIVE (NEGATIVE) 07/16/17 05:48 Urine RBC 0-5 /HPF (0-5) 07/16/17 05:48 Urine WBC >25 /HPF (0-5) H 07/16/17 05:48 Ur Epithelial Cells RARE Renal Tubular /HPF (<= Few) 07/16/17 05:48 Ur Squamous Epith Cells RARE Squamous (<= Few) 07/16/17 05:48 Urine Bacteria Rare /HPF (None Seen) 07/16/17 05:48 Urine Culture Comments INDICATED 07/16/17 05:48 Urine HCG, Qual NEGATIVE 07/16/17 05:48 Blood Type A POSITIVE 07/15/17 19:18 Antibody Screen NEGATIVE 07/15/17 19:18
[2017-07-17] MEDS ORDERED: MYCOPHENOLATE MOFETIL 250 MG CAPSULE PO SCH (21:00)
[2017-07-17] MEDS ORDERED: SODIUM CHLORIDE 0.9% 1,000 ML IV ONE (23:31)
[2017-07-18] MEDS: SODIUM CHLORIDE FLUSH 0.9% 10 ML SYRINGE IVP SCH (05:21)
[2017-07-18] MEDS: PANTOPRAZOLE 40 MG TABLET PO SCH ×2 (06:10→06:16)
[2017-07-18] MEDS: SODIUM CHLORIDE FLUSH 0.9% 10 ML SYRINGE IVP PRN (08:03)
[2017-07-18] MEDS: KETOROLAC 30 MG/ML VIAL IVP PRN (08:03)
[2017-07-18] MEDS: POLYETHYLENE GLYCOL 3350 17 GM PACKET PO SCH (08:04)
[2017-07-18] MEDS: MYCOPHENOLATE MOFETIL 250 MG CAPSULE PO SCH (08:04)
[2017-07-18] MEDS: ENOXAPARIN 40 MG/0.4 ML SYRINGE SUBQ SCH (08:04)
[2017-07-18] MEDS: predniSONE 5 MG TABLET PO SCH (08:08)
[2017-07-18] MEDS ORDERED: POLYETHYLENE GLYCOL 3350 17 GM PACKET PO SCH (09:00)
[2017-07-18] MEDS ORDERED: DOCUSATE SODIUM 250 MG CAPSULE PO SCH (09:00)
[2017-07-18] MEDS ORDERED: SENNA 8.6 MG TABLET PO SCH (09:00)
[2017-07-18 10:05] LABS: CALCIUM 8.2 mg/dL (8.5-10.3); CREATININE 0.7 mg/dL (0.4-1.0); POTASSIUM 3.9 mmol/L (3.5-5.0)
[2017-07-18] MEDS: oxyCODONE 5 MG TABLET PO PRN (12:34)
--- NOTE | 2017-07-18 12:59 | PROVIDER PROGRESS NOTE ---
Subjective - Prog Note Date Prog Note Date: 07/17/17 Prog Note Time: 11:00 - Subjective Pt reports feeling: Improved (Minimal pain except to Right elbow with movement. Overall feels much better.) Objective - Vital Signs/Intake & Output Reviewed Vital Signs: Yes Vital Signs: Vital Signs x48h Temp Pulse Resp BP Pulse Ox 07/18/17 08:12 38.0 C H 82 16 121/64 94 07/18/17 05:00 36.9 C 72 16 100/58 L 95 Intake & Output: Intake & Output 07/15/17 07/16/17 07/17/17 07/18/17 23:59 23:59 23:59 23:59 Intake Total 1838 2893 900 Output Total 1600 2400 400 Balance 238 493 500 - Objective General Appearance: positive: No acute distress, Alert Eyes Bilateral: positive: Normal inspection ENT: positive: ENT inspection nml Neck: positive: Nml inspection Respiratory: positive: No respiratory distress, Breath sounds nml Cardiovascular: positive: Regular rate & rhythm Peripheral Pulses: 2+ Radial (R), 2+ Dorsalis pedis (R), 2+ Posterior tibialis ( R) Abdomen: positive: Non-tender, Nml bowel sounds, No distention. negative: Guarding Back: positive: Nml inspection Skin: positive: Color nml, No rash, Warm, Dry, Other (Moderate echymosis surrounding Right Elbow.) - Lab Results Fish Bones: 07/15/17 19:18 07/18/17 08:52 Other Labs: Lab Results x24hrs 07/18/17 Range/Units 08:52 Sodium 131 L (135-145) mmol/L Potassium 3.9 (3.5-5.0) mmol/L Chloride 99 L (101-111) mmol/L Carbon Dioxide 24 (21-32) mmol/L Anion Gap 8.0 (6-13) BUN 7 (6-20) mg/dL Creatinine 0.7 (0.4-1.0) mg/dL Estimated GFR (MDRD) 88 L (>89) Glucose 122 H (70-100) mg/dL Calcium 8.2 L (8.5-10.3) mg/dL Assessment/Plan - Problem List (1) Fall from ladder Impression: Impression: Stable Post-Op Plan: 1. Mobilize with PT. WBAT RLE w/ wlaker w/ platform for Right upper extremity. 2. Plan discharge tomorrow if mobilized with PT and pain well controlled. Qualifiers: Encounter type: subsequent encounter Qualified Code(s): W11.XXXD - Fall on and from ladder, subsequent encounter (2) Fracture of right olecranon process Qualifiers: Encounter type: subsequent encounter Fracture type: closed (3) Intertrochanteric fracture of right hip Qualifiers: Encounter type: subsequent encounter Fracture type: closed Fracture alignment: nondisplaced
--- NOTE | 2017-07-18 13:04 | PROVIDER PROGRESS NOTE ---
Subjective - Prog Note Date Prog Note Date: 07/18/17 Prog Note Time: 12:30 - Subjective Pt reports feeling: Improved (Doing much better. Sitting up at bedside.Pain 5/10 , asking for pain medication.) Objective - Vital Signs/Intake & Output Reviewed Vital Signs: Yes Vital Signs: Vital Signs x48h Temp Pulse Resp BP Pulse Ox 07/18/17 08:12 38.0 C H 82 16 121/64 94 Intake & Output: Intake & Output 07/15/17 07/16/17 07/17/17 07/18/17 23:59 23:59 23:59 23:59 Intake Total 1838 2893 900 Output Total 1600 2400 400 Balance 238 493 500 - Objective General Appearance: positive: Alert, Mild distress Eyes Bilateral: positive: Normal inspection ENT: positive: ENT inspection nml Neck: positive: Nml inspection Respiratory: positive: No respiratory distress, Breath sounds nml, Other (Mild Left sided chest trenderness with deep inspiration.) Peripheral Pulses: 2+ Radial (R), 2+ Dorsalis pedis (R), 2+ Posterior tibialis ( R) Abdomen: positive: Non-tender, Nml bowel sounds, No distention. negative: Guarding Back: positive: Nml inspection Skin: positive: Color nml, No rash, Warm, Dry, Other (Dressings clean, dry, and intact.) Extremities: positive: No pedal edema. negative: Calf tenderness, May's sign/ cords Neurologic/Psychiatric: positive: Oriented x3, Motor nml, Sensation nml, Mood/ affect nml - Lab Results Fish Bones: 07/15/17 19:18 07/18/17 08:52 Other Labs: Lab Results x24hrs 07/18/17 Range/Units 08:52 Sodium 131 L (135-145) mmol/L Potassium 3.9 (3.5-5.0) mmol/L Chloride 99 L (101-111) mmol/L Carbon Dioxide 24 (21-32) mmol/L Anion Gap 8.0 (6-13) BUN 7 (6-20) mg/dL Creatinine 0.7 (0.4-1.0) mg/dL Estimated GFR (MDRD) 88 L (>89) Glucose 122 H (70-100) mg/dL Calcium 8.2 L (8.5-10.3) mg/dL Assessment/Plan - Problem List (1) Fall from ladder Impression: Impression: Stable Post-Op. Plan: 1. D/C to home. 2. Walker w/ platform for RUE. WBAT RLE. 3. F?U with orthoTameka, one week, . Qualifiers: Encounter type: subsequent encounter Qualified Code(s): W11.XXXD - Fall on and from ladder, subsequent encounter (2) Fracture of right olecranon process Qualifiers: Encounter type: subsequent encounter Fracture type: closed (3) Intertrochanteric fracture of right hip Qualifiers: Encounter type: subsequent encounter Fracture type: closed Fracture alignment: nondisplaced
--- NOTE | 2017-07-18 13:09 | Discharge Plan ---
Discharge Plan Disposition: 01 Home, Self Care Condition: Good Diet: Regular Activity Restrictions: Walker with platform RUE Shower Restrictions: No Driving Restrictions: Yes (No driving) Assistance Devices: Walker, Other (w/ platform for Right Upper Extremity.) Weight Bearing: Full Weight No Smoking: If you smoke, Please STOP! Call for help. Follow-up with: Shilo Nieto MD [Provider Admit Priv/Credential] -
[2017-07-18 15:07] VITALS: BP 116/80
--- NOTE | 2017-07-18 15:23 | DISCHARGE SUMMARY ---
DATE OF ADMISSION: 07/15/2017 DATE OF DISCHARGE: 07/18/2017 HISTORY OF PRESENT ILLNESS: This is a 51-year-old white female with a history of myasthenia gravis, status post thymectomy, on steroids and CellCept. The patient was on a ladder from which she fell and suffered a right intertrochanteric hip fracture and olecranon fracture, as well as bruised ribs, lung contusion and was admitted for pain control and surgical repair. HOSPITAL COURSE WITH DISCHARGE DIAGNOSES 1. Fractured hip. The patient underwent successful ORIF without complications. She had SAFETY LEADER pump for pain control postoperatively, required Compazine for nausea related to the narcotics. On postop day #2, she was felt to be stable for discharge by the orthopedist with followup with him as an outpatient. 2. Olecranon fracture. On the same day as her hip surgery, she underwent successful surgical repair of the elbow. She had the same pain management as above and plan for followup as above. 3. History of myasthenia gravis. The patient was scheduled for stress dose steroids perioperatively and then was put back on her maintenance dose of prednisone postoperatively. There were no other complaints of weakness except what was expected from the pain from fractures and surgery. 4. Pulmonary contusion. There were no complaints of shortness of breath. The patient was using incentive spirometry. The patient was felt to be stable from a pulmonary standpoint at the time of discharge. CONDITION AT DISCHARGE: Stable. The patient is to be discharged with a front- wheeled walker and with right upper extremity forearm support. FOLLOWUP: With her PCP and Shilo Nieto MD, (orthopedist). MEDICATIONS AT THE TIME OF DISCHARGE: Were the same as preadmission, and in addition, she was given Toradol caps prn pain if Tylenol tablets did not relieve her pain. TIME SPENT ON DISCHARGE : 30 min. JOB #: [id number] EXT JOB #:[id number] JOHNATHAN
[2017-07-19] MEDS ORDERED: MYCOPHENOLATE MOFETIL 250 MG CAPSULE PO SCH (07:00)
--- NOTE | 2017-07-26 12:53 | XRAY Report ---
Fluoroscopy time only, no images submitted for interpretation. Fluoroscopy time 0 minutes, 26 seconds. MTDD
--- NOTE | 2017-07-26 13:06 | XRAY Report ---
Fluoroscopy time only, no images submitted for interpretation. Fluoroscopy time 0 minutes, 37 seconds. MTDD
--- NOTE | 2017-08-22 00:23 | OPERATIVE REPORT ---
DATE OF SURGERY: 07/16/2017 00:00:00 PREOPERATIVE DIAGNOSES: 1. Right hip intertrochanteric fracture. 2. Displaced closed right olecranon fracture. POSTOPERATIVE DIAGNOSES: 1. Right hip intertrochanteric fracture. 2. Displaced closed right olecranon fracture. PROCEDURE: 1. IM nailing, right hip intertrochanteric fracture. 2. Open reduction internal fixation of right olecranon fracture. PRIMARY SURGEON: Shilo Nieto MD. ANESTHESIA PROVIDER: Lana Adam CRNA. ANESTHESIA TECHNIQUE: General endotracheal tube and local. PATHOLOGY: Tissue sent for cultures. FLUIDS: 2000 mL of lactated Ringer's. ESTIMATED BLOOD LOSS: 150 mL. COMPLICATIONS: None. DISPOSITION: PACU, then Med/Surg. CONDITION: Stable. IMPLANTS: 1. Right hip Amanuel natural nail 11.5 x 400 mm with a 6.5 x 85 mm lag screw. 2. Right Acumed olecranon plate 4-hole locking with appropriate screws. INDICATIONS: This is a 51-year-old female who slipped and fell, landing on her right side, sustaining a closed, 100% displaced intra-articular right olecranon fracture and a moderately displaced slightly comminuted right hip intertrochanteric fracture. She was brought to the emergency department by EMS where evaluation revealed the above injuries. She was admitted to the hospitalist service and orthopedic surgery was consulted. After review of her radiographs and discussion with the patient, she agreed to proceed to the operating room for open reduction internal fixation of right olecranon fracture as well as cephalomedullary nailing of a right hip intertrochanteric fracture. PROCEDURE IN DETAIL: After consent and identification, the patient was brought to the operating room and placed in a supine position on the operating litter. After induction of appropriate general endotracheal anesthesia and monitoring, the patient was transferred to a well-padded fracture table. Perineal post was placed in the perineum. The left arm was outstretched on an arm board. The right arm was placed on the hand table. The right lower extremity was placed in a traction boot with appropriate cast padding and overwrapped with Coban. The left lower extremity was placed in a padded Mendoza stirrup and the hip was flexed , internally rotated and abducted to allow access for the C-arm between the legs. The right lower extremity was then prepped and draped free in the usual sterile fashion with a shower curtain. After an appropriate timeout was conducted, we mapped out an incision beginning at the tip of the greater trochanter extending proximally a total of 5 cm. Fluoroscopic guidance was used to localize. Incision was made through the skin and subcutaneous tissue and external fascia of the hip abductor musculature. Digital exploration identified the crest of the greater trochanter and the piriformis fossa. We used a guide pin to enter the greater trochanter just anterior to the piriformis fossa at the crest of the greater trochanter. The guide pin in place verified by fluoroscopy. We used the starting reamer to drill our 17 mm starting hole. We removed the guidewire and replaced it with a long ball tip guidewire, which was advanced down to the knee and verified on AP and lateral fluoroscopy. We sequentially reamed over the guidewire up to a 13 mm diameter. We selected an 11.5 x 400 mm nail and assembled to the insertion tower. We then inserted the nail across the adequately reduced fracture. We used the targeting device to place a single 6.5 x 85 mm lag screw through a second small lateral incision. We then tightened the set screw and backed off 1/2 turn to allow some settling of the fracture fragments. The fracture appeared to be stable and well fixed. At this point, we elected not to place a distal interlocking screw. The position of the fracture reduction and the cephalomedullary nail was verified with AP and lateral fluoroscopy, which was saved. We then irrigated and closed both incisions with interrupted 2-0 Vicryl subcuticular sutures followed by a running 0 Vicryl suture to the external fascia of the abductor musculature. A subcutaneous 3-0 Monocryl suture was used to close the proximal wound. Steri- Strips were used to complete composed of the closure, the distal wound. Both wounds were then infiltrated with a total of 10 mL of 0.5% Marcaine with epinephrine. Wounds were covered with sterile Mepilex AG dressing. The draping was removed from the hip wound. With the right arm outstretched on the arm table padded tourniquet was placed to the proximal arm. The right upper extremity was then prepped and draped free in the usual sterile fashion for elbow surgery. After a second timeout was conducted, we mapped out a posterior incision directly centered over the tip of the elbow. Incision was carried out longitudinally over a distance of approximately 12 cm with 5 cm proximal and 7 cm distal to the tip of the olecranon. Skin and subcutaneous tissue was divided after we had exsanguinated the extremity and inflated the tourniquet to 275 mmHg. We exposed the olecranon in the fracture site. The fracture site was cleaned thoroughly with irrigation. curet and rongeur removing small bits of one. The periosteal elevator was used to expose the lateral border of the ulna to accept the plate. We effected a reduction, which appeared to be anatomic. There was mild comminution of the articular surface, but it was anatomically reduced. We placed a 6 hole Acumed olecranon plate over the reduced fracture and held the fracture reduction in position with a Asencio tenaculum forceps. Standard AO technique was used to place a total of 6 screws being a combination of 3.5 and 2.7 mm screws into the fracture. Three screws were proximal to the fracture line into the olecranon fragment. Adequate reduction was verified with AP and lateral fluoroscopy. The wound was then thoroughly irrigated and sequentially closed with interrupted 2-0 Vicryl sutures to the subcuticular layer followed by a running 3-0 Monocryl suture to the dermis. After infiltration of the wound with 10 mL of 0.5% Marcaine with epinephrine a sterile Mepilex AG dressing was placed over the wound. The tourniquet was deflated and removed without complication. The forearm and upper arm was wrapped from the hand to the proximal arm with a 4-inch Ant bandage. On completion of both procedures, the patient was extubated and transferred to the recovery room in good condition having tolerated the procedures well. JOB #: [id number] EXT JOB #:[id number] [email or web address]
== END 2017-07-18 15:14 | disposition home or self-care (01) | DRG 956 ==
LOC: ED 18:11 → MS3 20:19
PROVIDERS: ADMIT Internal Medicine; ATTEND Internal Medicine
PROC: 0QS636Z Reposition Right Upper Femur with Intramedullary Internal Fixation Device, Percutaneous Approach (ICD-10-PCS; principal; 2017-07-16 11:00)
PROC: 0PSK04Z Reposition Right Ulna with Internal Fixation Device, Open Approach (ICD-10-PCS; 2017-07-16 11:00)
DX: S72.144A Nondisplaced intertrochanteric fracture of right femur, initial encounter for closed fracture (principal); S27.321A Contusion of lung, unilateral, initial encounter; G92 Toxic encephalopathy; S52.021A Displaced fracture of olecranon process without intraarticular extension of right ulna, initial encounter for closed fracture; S52.124A Nondisplaced fracture of head of right radius, initial encounter for closed fracture; S69.91XA Unspecified injury of right wrist, hand and finger(s), initial encounter; E87.6 Hypokalemia; W11.XXXA Fall on and from ladder, initial encounter; G70.00 Myasthenia gravis without (acute) exacerbation; F17.210 Nicotine dependence, cigarettes, uncomplicated; R06.89 Other abnormalities of breathing; T40.605A Adverse effect of unspecified narcotics, initial encounter; Y93.H9 Activity, other involving exterior property and land maintenance, building and construction; Y92.018 Other place in single-family (private) house as the place of occurrence of the external cause; Y99.8 Other external cause status; Z79.52 Long term (current) use of systemic steroids; Y92.238 Other place in hospital as the place of occurrence of the external cause; Z87.898 Personal history of other specified conditions
CPT/HCPCS: 36415; 51702; 71010; 71260; 72125; 80048; 80053; 81001; 81025; 83690; 83735; 84100; 85025; 85610; 86850; 86900; 86901; 87040; 87086; 93005; 96361; 96374; 96375; 99283; 99284; 99285

== ENCOUNTER 2017-08-17 09:51 | Day surgery (SDC) | payer MEDICAID ==
[2017-08-17] MEDS ORDERED: ceFAZolin 2 GM/50 ML 2 GM/50 ML BAG IV ONE (10:02)
[2017-08-17 10:51] LABS: HCG UR QUAL NEGATIVE
[2017-08-17] MEDS ORDERED: LACTATED RINGERS 1,000 ML IV ONE (11:00)
[2017-08-17] MEDS ORDERED: SCOPOLAMINE PATCH TOP ONE (12:16)
[2017-08-17] MEDS ORDERED: MIDAZOLAM 2 MG/2 ML VIAL IVP ONE (13:06)
[2017-08-17] MEDS ORDERED: PROPOFOL 200 MG/20 ML VIAL IVP ONE (13:06)
[2017-08-17] MEDS ORDERED: ONDANSETRON 4 MG/2 ML VIAL IVP ONE (13:06)
[2017-08-17] MEDS ORDERED: fentaNYL 100 MCG/2 ML VIAL IVP ONE (13:06)
[2017-08-17] MEDS ORDERED: METOCLOPRAMIDE 10 MG/2 ML VIAL IVP ONE (13:06)
[2017-08-17] MEDS ORDERED: ePHEDrine 50 MG/ML VIAL IVP ONE (13:06)
[2017-08-17] MEDS ORDERED: DEXAMETHASONE 4 MG/ML VIAL IVP ONE (13:06)
[2017-08-17 15:20] VITALS: BP 117/68
--- NOTE | 2017-08-17 15:50 | OPERATIVE REPORT ---
DATE OF SURGERY: 08/17/2017 00:00:00 PREOPERATIVE DIAGNOSIS: Right elbow displaced olecranon fracture with internal fixation plate and scr ews. POSTOPERATIVE DIAGNOSIS: Right elbow displaced olecranon fracture with internal fixation plate and sc rews. NAME OF PROCEDURE: Right elbow open reduction internal fixation with plate removal. The fixation used was a tension band construct. INDICATIONS FOR SURGERY: The patient is a female who is 51 years of age who has had a prior trauma to her right hip and right elbow and underwent prior surgical repair of her olecranon fracture, but has gone on to failure of that fixation and displacement of her fracture. Recommendation is for revision of the repair and tension band wiring. FINDINGS AT SURGERY: The patient's previous incision line was clean and dry, and the approach to the elbow was directed, as it was subcutaneous. The plate had good fixation, but the proximal screws did not gain fixation in the fracture fragment itself and the fracture fragment had displaced about 1 inc h proximal. The fixation gained with K wires was good, and the tension band construct was stable. DESCRIPTION OF OPERATIVE PROCEDURE: The patient was taken to the operating room, given a general anes thetic. Tourniquet was placed high on the arm and the elbow was sterilely prepped and draped in stand shashi fashion. Under tourniquet control, the elbow was approached through his prior incision, which was extended proximally. The plate was directly incised upon and reflected and exposed and removed, incl uding all screws. The fracture was then freed of scar tissue and clot and freshened and delivered int o its distal aspect and reduced with a tenaculum clamp. K wires 0.062 size were driven across this fr acture stabilizing it, after which an initial 18-gauge cerclage wire was tightened and did not gain s ufficient stability, but a second cerclage K-wire was added and gained excellent stability. These wir es were bent and cut and surfaced below the subcutaneous tissue and C-arm images confirmed adequate r eduction. Closure was undertaken after irrigating the wound. Closure with interrupted Vicryl in the s ubcutaneous tissue followed by interrupted 2-0 Vicryl subcutaneous and Monocryl closure of skin. Ster ile dressings were applied. The patient was placed in a posterior arm splint and taken to the recover y room in stable condition. ESTIMATED BLOOD LOSS: Minimal. COMPLICATIONS: None. SPONGE AND NEEDLE COUNTS: Correct. JOB #: [id number] EXT JOB #:[id number]
== END 2017-08-17 09:52 | disposition home or self-care (01) ==
LOC: SDS 09:51
PROVIDERS: ATTEND Orthopaedic Surgery
PROC: 0PSK04Z Reposition Right Ulna with Internal Fixation Device, Open Approach (ICD-10-PCS; principal; 2017-08-17 11:00)
DX: S52.021A Displaced fracture of olecranon process without intraarticular extension of right ulna, initial encounter for closed fracture (principal)
CPT/HCPCS: 24685; 81025; J0690; J3490; J7120

== ENCOUNTER 2017-12-02 09:02 | Outpatient (CLI) | payer MEDICAID ==
[2017-12-02 18:00] LABS: ALBUMIN 4.3 g/dL (3.2-5.5); ALBUMIN/GLOBULIN RATIO 1.7 (1.0-2.2); ALKALINE PHOSPHATASE 73 IU/L (42-121); ALT ALANINE AMINOTRANSFERASE 23 IU/L (10-60); AST ASPARTATE AMINOTRANSFERASE 18 IU/L (10-42); BILIRUBIN,TOTAL 0.8 mg/dL (0.2-1.0); BUN - BLOOD UREA NITROGEN 15 mg/dL (6-20); CALCIUM 8.9 mg/dL (8.5-10.3); CARBON DIOXIDE - CO2 24 mmol/L (21-32); CHLORIDE 107 mmol/L (101-111); CHOL/HDL RATIO 3.3 (<4.4); CHOLESTEROL 164 mg/dL; CREATININE 0.6 mg/dL (0.4-1.0); GFR - MDRD 105 (>89); GLUCOSE 87 mg/dL (70-100); HDL CHOLESTEROL 50 mg/dL; LDL CHOLESTEROL,CALCULATED 104 mg/dL; LDL/HDL RATIO 2.1 (<4.4); SODIUM 139 mmol/L (135-145); TOTAL PROTEIN 6.9 g/dL (6.7-8.2); VLDL CHOLESTEROL 10 mg/dL
[2017-12-02 18:03] LABS: THYROID STIMULATING HORMONE 1.79 uIU/mL (0.34-5.60)
[2017-12-02 18:21] LABS: BASOPHILS % (AUTO) 1.1 %; EOSINOPHILS # (AUTO) 0.1 10^3/uL (0.0-0.7); EOSINOPHILS % (AUTO) 2.9 %; HGB - HEMOGLOBIN 11.9 g/dL (12.0-16.0); LYMPHOCYTES % (AUTO) 27.2 %; MEAN CORPUSCULAR HEMOGLOBIN 30.8 pg (27.0-31.0); MEAN CORPUSCULAR HGB CONC 32.7 g/dL (32.0-36.0); MEAN CORPUSCULAR VOLUME 94.3 fL (81.0-99.0); MEAN PLATELET VOLUME 7.9 fL (7.9-10.8); MONOCYTES # (AUTO) 0.3 10^3/uL (0.0-1.0); MONOCYTES % (AUTO) 8.5 %; NEUTROPHILS # (AUTO) 2.2 10^3/uL (1.5-6.6); NEUTROPHILS % (AUTO) 60.3 %; PLT - PLATELET COUNT 267 10^3/uL (130-450); RED BLOOD COUNT 3.85 10^6/uL (4.20-5.40); RED CELL DISTRIBUTION WIDTH 13.6 % (12.0-15.0); WHITE BLOOD COUNT 3.6 x10^3/uL (4.8-10.8)
[2017-12-02 18:30] LABS: FOLLICLE STIMULATING HORMONE 115.77 mIU/mL
[2017-12-02 18:31] LABS: LUTEINIZING HORMONE 50.48 mIU/mL
== END 2017-12-02 09:03 | disposition home or self-care (01) ==
LOC: LAB.F 09:02
PROVIDERS: ATTEND Physician Assistant Medical
DX: Z00.00 Encounter for general adult medical examination without abnormal findings (principal); Z78.0 Asymptomatic menopausal state; N95.9 Unspecified menopausal and perimenopausal disorder
CPT/HCPCS: 36415; 80053; 80061; 82306; 82670; 83001; 83002; 83721; 84443; 85025

== ENCOUNTER 2017-12-13 10:53 | Outpatient (CLI) | payer MEDICAID ==
--- NOTE | 2017-12-13 12:36 | Ultrasound Report ---
LEFT BREAST ULTRASOUND: 12/13/2017 CLINICAL INDICATION: Palpable abnormality inner left breast. TECHNIQUE: Real-time scanning was performed with automobile sales representative static images obtained. FINDINGS: Ultrasound of the palpable abnormality identified by the patient was performed. Unremarkable parenchymal lobules are noted. An incidental 5 mm embedded cyst is identified just medial to the site of palpable abnormality identified by the patient. No suspicious mass or architectural distortion is appreciated. IMPRESSION: BENIGN FINDINGS, WITH AN INCIDENTAL EMBEDDED CYST IN THE REGION OF THE PALPABLE ABNORMALITY IDENTIFIED BY THE PATIENT. RECOMMENDATIONS: ROUTINE ANNUAL SCREENING UNLESS OTHERWISE CLINICALLY INDICATED. BIRADS CATEGORY 2-BENIGN FINDINGS. TD: 12/13/2017 12:36
--- NOTE | 2017-12-13 12:41 | Mammography Report ---
DIGITAL DIAGNOSTIC BILATERAL MAMMOGRAM: 12/13/2017 CLINICAL INDICATION: Palpable abnormality inner left breast. COMPARISON: Films from [place], [place] dated 11/04/2012. TECHNIQUE: Bilateral CC, laterally exaggerated CC, MLO, left true lateral views. A marker was placed at the site of palpable abnormality identified by the patient. FINDINGS: The breasts again demonstrate heterogeneously dense fibroglandular parenchyma bilaterally. No suspicious masses, clustered microcalcifications, or regions of architectural distortion are identified. There has been no significant interval change. Please also refer to left breast ultrasound of the same day. IMPRESSION: BENIGN FINDINGS, WITH AN INCIDENTAL EMBEDDED CYST IDENTIFIED ON ULTRASOUND. RECOMMENDATION: ROUTINE ANNUAL SCREENING UNLESS OTHERWISE CLINICALLY INDICATED. BIRADS CATEGORY 2-BENIGN FINDINGS. STANDARD QUALIFYING STATEMENTS: 1. This examination was reviewed with the aid of Computer-Aided Detection (CAD). 2. A negative or benign imaging report should not delay biopsy if clinically suspicious findings are present. Consider surgical consultation if warranted. More than 5% of cancers are not identified by imaging. 3. Dense breasts may obscure an underlying neoplasm. TD: 12/13/2017 12:40
--- NOTE | 2017-12-13 15:30 | DEXA Report ---
DEXA SCAN: 12/13/2017 CLINICAL INDICATION: Postmenopausal. TECHNIQUE: Dual energy x-ray absorptiometry (DXA) was performed on a [employer] system. Regions measured are the AP spine, femoral neck, and, if needed, forearm. COMPARISON: None. In accordance with the International Society for Clinical Densitometry (ISCD) guidelines, data from previous exams may be reanalyzed using current recommendations and techniques. This is done to allow a more accurate basis for comparison with the current study. FINDINGS The data for the lumbar spine is as follows: REGION BMD (g/cm/cm) T-SCORE Z-SCORE L1 0.807 -2.7 -2.0 L2 0.929 -2.3 -1.6 L3 0.967 -1.9 -1.2 L4 0.847 -2.9 -2.2 TOTAL 0.888 -2.4 -1.7 NOTE: All evaluable vertebrae are used for classification. The data for the hip is as follows: REGION BMD (g/cm/cm) T-SCORE Z-SCORE Neck 0.721 -2.3 -1.3 TOTAL 0.661 -2.7 -2.1 NOTE: The femoral neck or total proximal femur, whichever is lowest, is used for classification. IMPRESSION THE WHO CLASSIFICATION BASED ON THE INTERNATIONAL REFERENCE STANDARD IS OSTEOPOROSIS. THE FRACTURE RISK IS HIGH. RECOMMENDATION: Patients with diagnosis of osteoporosis or osteopenia should have regular bone mineral density assessment. For those eligible for Medicare, routine testing is allowed once every 2 years. Testing frequency can be increased for patients who have rapidly progressing disease or for those who are receiving medical therapy to restore bone mass. COMMENT: World Health Organization (WHO) definitions for osteoporosis and osteopenia: NORMAL BMD: T-score at 1.0 or higher, fracture risk is low. OSTEOPENIA BMD: T-score between 1.0 and -2.5, fracture risk is increased. OSTEOPOROSIS BMD: T-score at 2.5 or lower, fracture risk high. National Osteoporosis Foundation recommends: 1. Obtain adequate dietary calcium (at least 1200 mg per day) and vitamin D (400 -800 international units per day). 2. Participate, as appropriate, in regular weightbearing and muscle- strengthening exercise. 3. Avoid tobacco use and reduce alcohol and caffeine intake. 4. For more detailed information see the website at www.NOF.org. TD: 12/13/2017 15:17 [email or web address]
== END 2017-12-13 10:54 | disposition home or self-care (01) ==
LOC: DI 10:53
PROVIDERS: ATTEND Physician Assistant Medical
DX: N60.02 Solitary cyst of left breast (principal); M81.0 Age-related osteoporosis without current pathological fracture; Z78.0 Asymptomatic menopausal state
CPT/HCPCS: 76642; 77066; 77080

== ENCOUNTER 2018-11-03 13:12 | Outpatient (CLI) | payer MEDICAID ==
--- NOTE | 2018-11-03 16:02 | XRAY Report ---
Reason: CHEST PAIN,RIGHT Procedure Date: 11/03/2018 Accession Number: [id number] / [id number] Procedure: XR - Chest 2 View X-Ray CPT Code: 37396 FULL RESULT: EXAM: CHEST RADIOGRAPHY EXAM DATE: 11/03/2018 01:19 PM. CLINICAL HISTORY: CHEST PAIN,RIGHT. COMPARISON: CHEST 1 VIEW 07/15/2017 6:31 PM. TECHNIQUE: 2 views. FINDINGS: Lungs/Pleura: No focal opacities evident. No pleural effusion. No pneumothorax. Normal volumes. Mediastinum: Heart and mediastinal contours are unremarkable. Other: None. IMPRESSION: No acute cardiopulmonary abnormality. RADIA
== END 2018-11-03 13:13 | disposition home or self-care (01) ==
LOC: DI 13:12
PROVIDERS: ATTEND Registered Nurse
DX: R07.89 Other chest pain (principal)
CPT/HCPCS: 71046

== ENCOUNTER 2019-04-03 07:45 | Outpatient (CLI) | payer MEDICAID, OTHER ==
[2019-04-03 10:52] LABS: ALBUMIN 4.1 g/dL (3.2-5.5); ALBUMIN/GLOBULIN RATIO 1.6 (1.0-2.2); ALKALINE PHOSPHATASE 65 IU/L (42-121); ALT ALANINE AMINOTRANSFERASE 21 IU/L (10-60); AST ASPARTATE AMINOTRANSFERASE 22 IU/L (10-42); BILIRUBIN,TOTAL 0.6 mg/dL (0.2-1.0); BUN - BLOOD UREA NITROGEN 15 mg/dL (6-20); CALCIUM 8.7 mg/dL (8.5-10.3); CARBON DIOXIDE - CO2 25 mmol/L (21-32); CHLORIDE 105 mmol/L (101-111); CHOL/HDL RATIO 2.8 (<4.4); CHOLESTEROL 159 mg/dL; CREATININE 0.7 mg/dL (0.4-1.0); GFR - MDRD 88 (>89); GLUCOSE 89 mg/dL (70-100); HDL CHOLESTEROL 56 mg/dL; LDL CHOLESTEROL,CALCULATED 91 mg/dL; LDL/HDL RATIO 1.6 (<4.4); MAGNESIUM 2.1 mg/dL (1.7-2.8); SODIUM 137 mmol/L (135-145); TOTAL PROTEIN 6.7 g/dL (6.7-8.2); VLDL CHOLESTEROL 12 mg/dL
[2019-04-03 11:05] LABS: BASOPHILS % (AUTO) 0.8 %; EOSINOPHILS # (AUTO) 0.1 10^3/uL (0.0-0.7); EOSINOPHILS % (AUTO) 2.6 %; HGB - HEMOGLOBIN 12.3 g/dL (12.0-16.0); LYMPHOCYTES % (AUTO) 26.3 %; MEAN CORPUSCULAR HEMOGLOBIN 32.4 pg (27.0-31.0); MEAN CORPUSCULAR HGB CONC 33.2 g/dL (32.0-36.0); MEAN CORPUSCULAR VOLUME 97.6 fL (81.0-99.0); MEAN PLATELET VOLUME 7.7 fL (7.9-10.8); MONOCYTES # (AUTO) 0.3 10^3/uL (0.0-1.0); MONOCYTES % (AUTO) 8.4 %; NEUTROPHILS # (AUTO) 2.4 10^3/uL (1.5-6.6); NEUTROPHILS % (AUTO) 61.9 %; PLT - PLATELET COUNT 261 10^3/uL (130-450); RED BLOOD COUNT 3.79 10^6/uL (4.20-5.40); RED CELL DISTRIBUTION WIDTH 13.6 % (12.0-15.0); THYROID STIMULATING HORMONE 2.37 uIU/mL (0.34-5.60); WHITE BLOOD COUNT 3.8 x10^3/uL (4.8-10.8)
[2019-04-03 11:06] LABS: FREE T4 (FREE THYROXINE) 0.79 ng/dL (0.58-1.64)
[2019-04-03 11:08] LABS: FERRITIN 39.5 ng/mL (11.0-306.8)
[2019-04-04 09:16] LABS: ESTRADIOL 63 pg/mL
[2019-04-04 11:30] LABS: PROGESTERONE <0.5 ng/mL
[2019-04-05 13:31] LABS: ANA SCREEN NEGATIVE (NEGATIVE)
[2019-04-05 15:46] LABS: DHEA SULFATE 63 mcg/dL (8-188)
[2019-04-06 14:07] LABS: ACETYLCHOL RECEP MODULATING AB 11
[2019-04-07 14:21] LABS: T3 REVERSE 10 ng/dL (8-25)
== END 2019-04-03 07:46 | disposition home or self-care (01) ==
LOC: LAB.F 07:45
PROVIDERS: ATTEND Naturopath
DX: Z13.21 Encounter for screening for nutritional disorder (principal); Z13.0 Encounter for screening for diseases of the blood and blood-forming organs and certain disorders involving the immune mechanism; Z13.220 Encounter for screening for lipoid disorders; Z13.29 Encounter for screening for other suspected endocrine disorder; R14.0 Abdominal distension (gaseous); R14.3 Flatulence; R10.30 Lower abdominal pain, unspecified; G70.00 Myasthenia gravis without (acute) exacerbation; R53.1 Weakness
CPT/HCPCS: 36415; 80053; 80061; 81599; 82627; 82670; 82672; 82728; 83519; 83721; 83735; 84144; 84403; 84439; 84443; 84445; 84482; 85025; 86038; 86800

== ENCOUNTER 2019-04-25 12:40 | Emergency (ER) | payer OTHER ==
[2019-04-25] MEDS ORDERED: oxyCODONE 5 MG TABLET PO STA (13:03)
--- NOTE | 2019-04-25 13:05 | ED Physician Documentation ---
PD HPI UPPER EXT INJURY - Stated complaint Stated Complaint: SHOULDER PX - Chief complaint Chief Complaint: Trauma Ext - History obtained from History obtained from: Patient - History of Present Illness Location: Right (She fell off a stepstool and forcibly her arm went over her head and she has severe right shoulder pain. 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: Tubal ligation - Present Medications Home Medications: Ambulatory Orders Medication Instructions Recorded Confirmed Mycophenolate Mofetil [Cellcept] 5 tab PO DAILY 07/15/17 08/17/17 predniSONE [Prednisone 21-tab dose 4 mg PO DAILY 07/15/17 08/17/17 pack] Acetaminophen [Tylenol] 650 mg PO Q4HR PRN 08/16/17 08/17/17 Calcium Citrate/Vitamin D3 1 each PO DAILY 08/16/17 08/17/17 [Calcium Citrate +Vit D3 Tablet] Glucosamine Sulfate 0 mg PO DAILY 08/16/17 08/17/17 Melatonin 12 mg PO DAILY PM 08/16/17 08/17/17 Mv-Min/Iron/Folic/Calcium/Vitk 1 each PO DAILY 08/16/17 08/17/17 [Women's Daily Formula Tablet] Potassium/Calcium/Magnes/Manga 1 each PO DAILY PRN 08/16/17 08/17/17 [Emergen-C Electro Mix Packet] Oxycodone HCl/Acetaminophen 1 - 2 each PO Q6H PRN #14 tablet 04/25/19 [Percocet 5-325 mg Tablet] - Allergies Allergies/Adverse Reactions: Allergies Allergy/AdvReac Type Severity Reaction Status Date / Time No Known Drug Allergies Allergy Verified 08/16/17 14:37 - Social History Does the pt smoke?: Yes Smoking Status: Current every day smoker Does the pt drink ETOH?: Yes Does the pt have substance abuse?: No - POLST Patient has POLST: No POLST Status: Full Code PD ED PE NORMAL - Vitals Vital signs reviewed: Yes - General General: Alert and oriented X 3, No acute distress - HEENT HEENT: PERRL, EOMI - Neck Neck: Supple, no meningeal sign, No bony TTP - Extremities Extremities: Other (Quite tender to the right upper humerus without deformity. Unable to range at all. Normal sensation in all parts of the hand and over the deltoid with normal graduate fellow strength, thumb extension, interosseous, flexion extension of the wrist.) - Neuro Neuro: Alert and oriented X 3, Normal speech Results - Vitals Vitals: Vital Signs - 24 hr 04/25/19 12:42 Temperature 36.5 C Heart Rate 67 Respiratory 18 Rate Blood Pressure 142/86 H O2 Saturation 100 Oxygen O2 Source [Without Activity] Room air O2 Source Room air - Rads (name of study) R shoulder Radiology: EMP read contemporaneously (Comminuted humeral head fracture) Departure - Departure Disposition: 01 Home, Self Care Clinical Impression: Fracture of humeral head, right, closed Qualifiers: Encounter type: initial encounter Qualified Code(s): S42.291A - Other displaced fracture of upper end of right humerus, initial encounter for closed fracture Condition: Good Record reviewed to determine appropriate education?: Yes Health Concerns: Follow-up with the orthopedic surgeon within the week. Keep the sling on until then. Return for new or worsening symptoms. Plan of Treatment: Do not drink or drive while taking narcotic pain medication. Note that many narcotic pain relievers also contain Tylenol/acetaminophen. Please ensure that your total dose of acetaminophen from all sources does not exceed 3 g (3000 mg) per day. You may get constipated while on this medication. Take a stool softener such as Colace twice a day while you are on it. Also add an chjg-acb-ncdgdof laxative such as senna or MiraLAX on any day that you do not have a bowel movement. If you received a narcotic pain medication or sedative while in the emergency department, do not drive for the next 24 hours. Instructions: ED Fx Upper Ext Follow-Up: [facility] [Provider Group] - Within 1 week Prescriptions: Oxycodone HCl/Acetaminophen [Percocet 5-325 mg Tablet] 1 - 2 each PO Q6H PRN #14 tablet PRN Reason: pain
--- NOTE | 2019-04-25 13:44 | XRAY Report ---
Reason: shoulder inj Procedure Date: 04/25/2019 Accession Number: [id number] / [id number] Procedure: XR - Shoulder 3 View RT CPT Code: FULL RESULT: EXAM: RIGHT SHOULDER RADIOGRAPHY EXAM DATE: 04/25/2019 01:28 PM. CLINICAL HISTORY: Fall today with right shoulder pain and limited range of motion. COMPARISON: None. TECHNIQUE: 3 views. FINDINGS: Bones: There is a comminuted humeral head fracture with involvement of the greater tubercle. Joints: The glenohumeral and acromioclavicular joints are normal. Soft tissues: The visualized hemithorax is unremarkable. No soft tissue swelling. IMPRESSION: Comminuted humeral head fracture with involvement of the greater tubercle. RADIA The call report notification system was initiated by Dr. Lennox Najera at 01:43 PM on 04/25/2019. ADDENDUM: 04/25/19 13:46 The above call report findings were discussed with Senthil Babcock by Dr. Lennox Najera at 01:46 PM on 04/25/2019.
[2019-04-25 14:12] VITALS: BP 126/70
== END 2019-04-25 14:12 | disposition home or self-care (01) ==
LOC: ED 12:40
DX: S42.351A Displaced comminuted fracture of shaft of humerus, right arm, initial encounter for closed fracture (principal); W11.XXXA Fall on and from ladder, initial encounter; F17.200 Nicotine dependence, unspecified, uncomplicated
CPT/HCPCS: 73030; 99283; A9270

== ENCOUNTER 2019-06-12 07:11 | Outpatient (CLI) | payer OTHER ==
[2019-06-12 10:09] LABS: BASOPHILS # (AUTO) 0.1 10^3/uL (0.0-0.1); BASOPHILS % (AUTO) 0.9 %; EOSINOPHILS # (AUTO) 0.1 10^3/uL (0.0-0.7); EOSINOPHILS % (AUTO) 2.1 %; LYMPHOCYTES # (AUTO) 1.3 10^3/uL (1.5-3.5); LYMPHOCYTES % (AUTO) 23.7 %; MEAN CORPUSCULAR HEMOGLOBIN 32.6 pg (27.0-31.0); MEAN CORPUSCULAR HGB CONC 32.3 g/dL (32.0-36.0); MEAN CORPUSCULAR VOLUME 101.1 fL (81.0-99.0); MEAN PLATELET VOLUME 9.5 fL (7.9-10.8); MONOCYTES # (AUTO) 0.4 10^3/uL (0.0-1.0); MONOCYTES % (AUTO) 6.5 %; NEUTROPHILS # (AUTO) 3.8 10^3/uL (1.5-6.6); NEUTROPHILS % (AUTO) 66.4 %; PLT - PLATELET COUNT 299 10^3/uL (130-450); RED BLOOD COUNT 3.68 10^6/uL (4.20-5.40); RED CELL DISTRIBUTION WIDTH 13.3 % (12.0-15.0); WHITE BLOOD COUNT 5.7 x10^3/uL (4.8-10.8)
[2019-06-12 10:32] LABS: % IRON SATURATION 22 % (20-50); IRON 64 ug/dL (28-170); TOTAL IRON BINDING CAPACITY 294 ug/dL (250-450); TRANSFERRIN 210 mg/dL (192-382)
[2019-06-13 07:14] LABS: ESTRADIOL <15 pg/mL; PROGESTERONE <0.5 ng/mL
[2019-06-14 14:31] LABS: DHEA SULFATE 77 mcg/dL (8-188)
[2019-06-14 22:32] LABS: ACEYLCHOLINE RECEP BLOCK AB <15 (<15)
== END 2019-06-12 07:12 | disposition home or self-care (01) ==
LOC: LAB.S 07:11
PROVIDERS: ATTEND Naturopath
DX: G70.00 Myasthenia gravis without (acute) exacerbation (principal); R53.1 Weakness; N95.1 Menopausal and female climacteric states; M81.8 Other osteoporosis without current pathological fracture; Z13.0 Encounter for screening for diseases of the blood and blood-forming organs and certain disorders involving the immune mechanism
CPT/HCPCS: 36415; 81599; 82523; 82570; 82627; 82670; 82672; 83519; 83540; 84144; 84403; 84466; 85025

== ENCOUNTER 2019-10-06 10:48 | Outpatient (CLI) | payer OTHER ==
[2019-10-06 17:24] LABS: BASOPHILS # (AUTO) 0.1 10^3/uL (0.0-0.1); BASOPHILS % (AUTO) 0.9 %; EOSINOPHILS # (AUTO) 0.1 10^3/uL (0.0-0.7); EOSINOPHILS % (AUTO) 2.2 %; HGB - HEMOGLOBIN 12.3 g/dL (12.0-16.0); LYMPHOCYTES # (AUTO) 1.8 10^3/uL (1.5-3.5); MEAN CORPUSCULAR HEMOGLOBIN 32.3 pg (27.0-31.0); MEAN CORPUSCULAR HGB CONC 32.2 g/dL (32.0-36.0); MEAN CORPUSCULAR VOLUME 100.3 fL (81.0-99.0); MEAN PLATELET VOLUME 9.5 fL (7.9-10.8); MONOCYTES # (AUTO) 0.4 10^3/uL (0.0-1.0); MONOCYTES % (AUTO) 5.9 %; NEUTROPHILS % (AUTO) 62.7 %; PLT - PLATELET COUNT 316 10^3/uL (130-450); RED BLOOD COUNT 3.81 10^6/uL (4.20-5.40); RED CELL DISTRIBUTION WIDTH 12.8 % (12.0-15.0); WHITE BLOOD COUNT 6.4 x10^3/uL (4.8-10.8)
[2019-10-09 22:05] LABS: VARICELLA ZOSTER VIRUS IGM 0.38
[2019-10-10 11:21] LABS: HSV 2 IGG TYPE SPECIFIC AB 9.38 index
[2019-10-11 12:06] LABS: EBV VIRAL CAPSID AB VCA IGG >750.00 U/mL; EBV VIRAL CAPSID AB VCA IGM <36.00 U/mL
== END 2019-10-06 10:49 | disposition home or self-care (01) ==
LOC: LAB.S 10:48
PROVIDERS: ATTEND Naturopath
DX: G70.01 Myasthenia gravis with (acute) exacerbation (principal); R53.83 Other fatigue; R53.1 Weakness; R10.9 Unspecified abdominal pain
CPT/HCPCS: 36415; 81599; 85025; 86644; 86645; 86665; 86695; 86696; 86787

== ENCOUNTER 2021-04-15 07:41 | Outpatient (CLI) | payer OTHER ==
[2021-04-15 15:09] LABS: BASOPHILS # (AUTO) 0.1 10^3/uL (0.0-0.1); EOSINOPHILS # (AUTO) 0.3 10^3/uL (0.0-0.7); EOSINOPHILS % (AUTO) 5.3 %; HCT - HEMATOCRIT 40.5 % (37.0-47.0); LYMPHOCYTES # (AUTO) 1.6 10^3/uL (1.5-3.5); LYMPHOCYTES % (AUTO) 32.5 %; MEAN CORPUSCULAR HEMOGLOBIN 33.5 pg (27.0-31.0); MEAN CORPUSCULAR HGB CONC 32.1 g/dL (32.0-36.0); MEAN CORPUSCULAR VOLUME 104.4 fL (81.0-99.0); MEAN PLATELET VOLUME 9.8 fL (7.9-10.8); MONOCYTES # (AUTO) 0.5 10^3/uL (0.0-1.0); NEUTROPHILS # (AUTO) 2.5 10^3/uL (1.5-6.6); PLT - PLATELET COUNT 305 10^3/uL (130-450); RED BLOOD COUNT 3.88 10^6/uL (4.20-5.40); RED CELL DISTRIBUTION WIDTH 12.9 % (12.0-15.0); WHITE BLOOD COUNT 4.9 x10^3/uL (4.8-10.8)
[2021-04-15 15:17] LABS: ALBUMIN 4.5 g/dL (3.2-5.5); ALBUMIN/GLOBULIN RATIO 1.7 (1.0-2.2); BILIRUBIN,TOTAL 0.8 mg/dL (0.2-1.0); CALCIUM 9.8 mg/dL (8.5-10.3); CREATININE 0.6 mg/dL (0.4-1.0); TOTAL PROTEIN 7.1 g/dL (6.7-8.2)
[2021-04-15 15:41] LABS: PROLACTIN 10.15 ng/mL
== END 2021-04-15 07:42 | disposition home or self-care (01) ==
LOC: LAB.S 07:41
PROVIDERS: ATTEND Internal Medicine
DX: Z00.00 Encounter for general adult medical examination without abnormal findings (principal); E53.8 Deficiency of other specified B group vitamins; N95.9 Unspecified menopausal and perimenopausal disorder; D15.0 Benign neoplasm of thymus; G70.00 Myasthenia gravis without (acute) exacerbation
CPT/HCPCS: 36415; 80053; 82607; 82670; 84146; 85025; 85651

== ENCOUNTER 2021-06-04 07:09 | Outpatient (CLI) | payer OTHER ==
--- NOTE | 2021-06-04 09:25 | Ultrasound Report ---
PROCEDURE: Abdomen Complete INDICATIONS: ABDOMINAL BLOATING TECHNIQUE: Real-time scanning was performed of the abdominal and retroperitoneal organs, with image documentatio n. COMPARISON: None. FINDINGS: Liver: Liver measures 16.8 cm in length and is echogenic diffusely. 2.7 x 1.5 x 2.1 cm ill-defined ri ght hepatic lesion with possible enhanced through-transmission. This finding is technically indetermi vahe. Gallbladder: 5 mm gallbladder polyp incidentally noted. No wall thickening. No sonographic Farn[place] sig n. Biliary ducts: Intrahepatic bile ducts are non-dilated. Extrahepatic bile duct caliber measures 2-4 mm. Normal is 6-7 mm or less in diameter, or 10 mm or less post-cholecystectomy. Pancreas: Cystic lesion measuring 4 mm in diameter is seen involving the pancreatic head. Spleen: Spleen is normal in size and homogeneous in echotexture. Kidneys: Kidneys are normal in size and echotexture. Right kidney measures 12.1 cm long; left kidne y measures 11.1 cm long. No hydronephrosis or nephrolithiasis. Possible upper pole cyst involving th e right kidney with internal low level echoes measuring 1.3 x 1.0 x 1.2 cm although cannot exclude ad renal etiology/location. Aorta: Visualized aorta is normal in caliber at less than 3 cm. Iliacs: Proximal common iliac arteries are normal in caliber at less than 2.5 cm. IVC: Intrahepatic inferior vena cava is patent. Miscellaneous: No free abdominal fluid. IMPRESSION: Coarsely echogenic liver suggesting hepatic steatosis/diffuse hepatocellular disease. Please correlat e with LFTs. Ill-defined right hepatic lesion, which is indeterminate. Recommend further evaluation with liver pro tocol MRI with contrast to exclude malignant possibilities, or as clinically warranted follow-up with serial ultrasound could be performed to document stability at six-month intervals (minimum 2 year beckett rveillance) Incidentally noted gallbladder polyp. Indeterminate lesion in the region of the upper pole of the right kidney. This could represent comple x renal cyst versus adrenal mass. This finding could be evaluated on the cross-sectional imaging yazmin mmended above, as clinically warranted. Cystic lesion measuring 4 mm the pancreatic head which is also indeterminate. This could represent cy st versus early cystic neoplasm. Recommend continued surveillance with ultrasound or cross-sectional studies to document long-term stability given the absence of any relevant prior comparison studies. Reviewed by: Humberto Hoyt MD on 06/04/2021 9:23 AM PDT Approved by: Humberto Hoyt MD on 06/04/2021 9:23 AM PDT Station ID: [id number]
== END 2021-06-04 07:10 | disposition home or self-care (01) ==
LOC: DI 07:09
PROVIDERS: ATTEND Internal Medicine
DX: R93.2 Abnormal findings on diagnostic imaging of liver and biliary tract (principal); R93.421 Abnormal radiologic findings on diagnostic imaging of right kidney; R93.3 Abnormal findings on diagnostic imaging of other parts of digestive tract; R14.0 Abdominal distension (gaseous); R10.84 Generalized abdominal pain; R19.7 Diarrhea, unspecified; R15.9 Full incontinence of feces; R15.2 Fecal urgency; R63.5 Abnormal weight gain; R53.82 Chronic fatigue, unspecified; R53.81 Other malaise; R71.8 Other abnormality of red blood cells

== ENCOUNTER 2021-06-09 08:41 | Outpatient (CLI) | payer OTHER ==
--- NOTE | 2021-06-10 16:08 | Mammography Report ---
BILATERAL DIGITAL SCREENING MAMMOGRAM 3D/2D WITH EXAGGERATED CC: 06/09/2021 CLINICAL: Routine screening. Comparison is made to exams dated: 12/13/2017 mammogram - [facility] and 11/04/2012 m ammogram - [facility] [place]. The tissue of both breasts is heterogeneously dense. This m ay lower the sensitivity of mammography. No significant masses, calcifications, or other findings are seen in either breast. There has been no significant interval change. IMPRESSION: NEGATIVE There is no mammographic evidence of malignancy. A 1 year screening mammogram is recommended. This exam was interpreted at Station ID: [id number]. NOTE: For mammograms, a report in lay terms will be sent to the patient. Approximately 15% of breast malignancies will not be visualized mammographically. In the management of a palpable breast mass, a negative mammogram must not discourage biopsy of a clinically suspicious lesion. Electronically Signed By: Eddie balderas/jessie:06/09/2021 09:15:39 ACR BI-RADS Category 1: Negative 3341F PARENCHYMAL PATTERN: (D) - The breast(s) demonstrate(s) heterogeneously dense fibroglandular [facility]. BI-RADS CATEGORY: (1) - 1 RECOMMENDATION: (ANNUAL) - Recommend routine annual screening mammography. [id number] 1 year screening LATERALITY: (B)
== END 2021-06-09 08:42 | disposition home or self-care (01) ==
LOC: DI.S 08:41
PROVIDERS: ATTEND Internal Medicine
DX: Z12.31 Encounter for screening mammogram for malignant neoplasm of breast (principal)

== ENCOUNTER 2021-06-11 09:33 | Outpatient (CLI) | payer OTHER ==
[2021-06-11 16:35] LABS: GAMMA GLUTAMYL TRANSPEPTIDASE 16 IU/L (8-38); LIPASE 36 U/L (22-51)
== END 2021-06-11 09:34 | disposition home or self-care (01) ==
LOC: LAB.S 09:33
PROVIDERS: ATTEND Internal Medicine
DX: R10.9 Unspecified abdominal pain (principal); K86.2 Cyst of pancreas
CPT/HCPCS: 36415; 82977; 83690; 86301

== ENCOUNTER 2021-06-11 14:08 | Outpatient (CLI) | payer OTHER ==
[2021-06-11] MEDS ORDERED: IOPAMIDOL-300 100 ML VIAL ONE (14:16)
[2021-06-11] MEDS ORDERED: IOVERSOL 320 50 ML VIAL ONE (14:18)
--- NOTE | 2021-06-11 16:14 | CT Report ---
PROCEDURE: Abdomen/Pelvis W INDICATIONS: ABD PAIN CONTRAST: IV CONTRAST: Isovue 300 ml: 100 PO CONTRAST: Optiray 320 ml50 TECHNIQUE: After the administration of oral and IV contrast, 5 mm thick sections acquired from the diaphragms to the symphysis. 5 mm thick coronal and sagittal reformats were acquired. For radiation dose reducti on, the following was used: automated exposure control, adjustment of mA and/or kV according to ruma ent size. COMPARISON: Ultrasound abdomen in 06/04/2021 FINDINGS: Image quality: There is limited visualization of the pelvis secondary to artifact from right femoral fixation. ABDOMEN: Lung bases: Patchy opacity is present within the left base. Heart size is normal. Solid organs: Liver and spleen are normal in size and enhancement. Gallbladder is unremarkable. Bi liary system is non dilated. Pancreas enhances normally. Previously noted 4 mm cystic focus within t he pancreatic head No adrenal nodules. Kidneys demonstrate normal size and enhancement, without hydr onephrosis. Peritoneum and bowel: Bowel loops demonstrate normal wall thickness and caliber. The appendix is nor mal in size. There is a very minimal appearance of stranding at the proximal end. No free fluid or ai r. Nodes and vessels: No retroperitoneal or mesenteric adenopathy by size criteria. Aorta and inferior vena cava are normal in size. Miscellaneous: Fat-containing ventral hernia is present with rectus diastases measuring 1.9 cm. PELVIS: Genitourinary: Bladder wall thickness is normal. Miscellaneous: No inguinal hernias or adenopathy. Bones: No suspicious bony lesions. No vertebral body compression fractures. IMPRESSION: 1. Slight appearance of periappendiceal stranding without enlargement of the appendix. This could be normal variant or related appendicitis. Clinical correlation is recommended. No priors are available for comparison. Recommend short interval imaging follow-up as indicated. 2. 4 mm pancreatic head lesion identified on ultrasound is not visualized on current exam. If concern persists and further investigation is warranted, MRI or CT with pancreatic protocol is recommended. Reviewed by: Apurva Landon MD on 06/11/2021 4:13 PM PDT Approved by: Apurva Landon MD on 06/11/2021 4:13 PM PDT Station ID: [id number]
[2021-06-11] MEDS ORDERED: IOPAMIDOL-300 100 ML VIAL IVP ONE (16:16)
[2021-06-11] MEDS ORDERED: IOVERSOL 320 50 ML VIAL PO ONE (16:17)
== END 2021-06-11 14:09 | disposition home or self-care (01) ==
LOC: DI 14:08
PROVIDERS: ATTEND Internal Medicine
DX: R10.9 Unspecified abdominal pain (principal); R93.5 Abnormal findings on diagnostic imaging of other abdominal regions, including retroperitoneum; K86.2 Cyst of pancreas
CPT/HCPCS: 36415; 74177; 82977; 83690; 86301; Q9967

== ENCOUNTER 2022-08-21 09:29 | Outpatient (CLI) | payer OTHER ==
[2022-08-21 14:37] LABS: BASOPHILS # (AUTO) 0.1 10^3/uL (0.0-0.1); BASOPHILS % (AUTO) 1.1 %; EOSINOPHILS # (AUTO) 0.1 10^3/uL (0.0-0.7); EOSINOPHILS % (AUTO) 1.7 %; HCT - HEMATOCRIT 40.7 % (37.0-47.0); LYMPHOCYTES # (AUTO) 1.6 10^3/uL (1.5-3.5); MEAN CORPUSCULAR HEMOGLOBIN 32.7 pg (27.0-31.0); MEAN CORPUSCULAR HGB CONC 31.9 g/dL (32.0-36.0); MEAN CORPUSCULAR VOLUME 102.5 fL (81.0-99.0); MEAN PLATELET VOLUME 9.4 fL (7.9-10.8); MONOCYTES # (AUTO) 0.4 10^3/uL (0.0-1.0); MONOCYTES % (AUTO) 8.9 %; NEUTROPHILS # (AUTO) 2.5 10^3/uL (1.5-6.6); NEUTROPHILS % (AUTO) 53.1 %; PLT - PLATELET COUNT 332 10^3/uL (130-450); RED BLOOD COUNT 3.97 10^6/uL (4.20-5.40); RED CELL DISTRIBUTION WIDTH 12.8 % (12.0-15.0); WHITE BLOOD COUNT 4.6 x10^3/uL (4.8-10.8)
[2022-08-21 15:02] LABS: ALBUMIN 4.4 g/dL (3.2-5.5); ALBUMIN/GLOBULIN RATIO 1.6 (1.0-2.2); ALKALINE PHOSPHATASE 62 IU/L (42-121); ALT ALANINE AMINOTRANSFERASE 27 IU/L (10-60); AST ASPARTATE AMINOTRANSFERASE 20 IU/L (10-42); BILIRUBIN,TOTAL 0.5 mg/dL (0.2-1.0); BUN - BLOOD UREA NITROGEN 16 mg/dL (6-20); CALCIUM 9.8 mg/dL (8.5-10.3); CARBON DIOXIDE - CO2 28 mmol/L (21-32); CHLORIDE 105 mmol/L (101-111); CHOL/HDL RATIO 3.7 (<4.4); CHOLESTEROL 224 mg/dL; CREATININE 0.7 mg/dL (0.4-1.0); GFR - MDRD 87 (>89); GLUCOSE 93 mg/dL (70-100); HDL CHOLESTEROL 61 mg/dL; LDL CHOLESTEROL,CALCULATED 150 mg/dL; LDL/HDL RATIO 2.5 (<4.4); POTASSIUM 4.7 mmol/L (3.5-5.0); SODIUM 140 mmol/L (135-145); TOTAL PROTEIN 7.1 g/dL (6.7-8.2); TRIGLYCERIDES 63 mg/dL; VLDL CHOLESTEROL 13 mg/dL
[2022-08-21 15:11] LABS: THYROID STIMULATING HORMONE 2.27 uIU/mL (0.34-5.60)
== END 2022-08-21 09:30 | disposition home or self-care (01) ==
LOC: LAB.S 09:29
PROVIDERS: ATTEND Registered Nurse
DX: Z00.00 Encounter for general adult medical examination without abnormal findings (principal); Z79.899 Other long term (current) drug therapy; Z13.228 Encounter for screening for other metabolic disorders; Z13.0 Encounter for screening for diseases of the blood and blood-forming organs and certain disorders involving the immune mechanism; Z13.29 Encounter for screening for other suspected endocrine disorder; Z13.220 Encounter for screening for lipoid disorders
CPT/HCPCS: 36415; 80053; 80061; 83721; 84443; 85025

== ENCOUNTER 2022-09-29 07:45 | Outpatient (CLI) | payer OTHER ==
--- NOTE | 2022-09-29 14:19 | Ultrasound Report ---
PROCEDURE: Pelvic Complete INDICATIONS: DIVERTICULOSIS, ABD PAIN TECHNIQUE: Real-time transabdominal scanning was performed of the pelvic organs, with image documentation. COMPARISON: CT abdomen pelvis 06/11/2021. FINDINGS: Uterus: Anteverted. Uterus is unremarkable in size for age at 6.1 x 2.4 x 3.9 cm. Endometrium measu res 4 mm in combined thickness. No focal endometrial lesion or abnormal endometrial vascularity visua lized. Ovaries: Not visualized. No adnexal mass visualized. Other: No free pelvic fluid. IMPRESSION: 1. Unremarkable transabdominal sonographic appearance of the uterus for age. 2. The ovaries were not visualized, possibly due to bowel gas and/or senescent change. No adnexal mas s visualized. Reviewed by: Eddie Rose MD on 09/29/2022 1:17 PM [facility] Approved by: Eddie Rose MD on 09/29/2022 1:17 PM [facility] Station ID: [id number]
== END 2022-09-29 07:46 | disposition home or self-care (01) ==
LOC: DI 07:45
PROVIDERS: ATTEND Registered Nurse
DX: K57.90 Diverticulosis of intestine, part unspecified, without perforation or abscess without bleeding (principal); R10.31 Right lower quadrant pain

== ENCOUNTER 2022-10-22 07:00 | Outpatient (CLI) | payer OTHER ==
[2022-10-22 19:45] LABS: BASOPHILS # (AUTO) 0.1 10^3/uL (0.0-0.1); BASOPHILS % (AUTO) 0.9 %; EOSINOPHILS # (AUTO) 0.1 10^3/uL (0.0-0.7); EOSINOPHILS % (AUTO) 2.1 %; HCT - HEMATOCRIT 40.9 % (37.0-47.0); HGB - HEMOGLOBIN 12.9 g/dL (12.0-16.0); LYMPHOCYTES # (AUTO) 1.5 10^3/uL (1.5-3.5); LYMPHOCYTES % (AUTO) 22.7 %; MEAN CORPUSCULAR HEMOGLOBIN 32.2 pg (27.0-31.0); MEAN CORPUSCULAR HGB CONC 31.5 g/dL (32.0-36.0); MEAN PLATELET VOLUME 9.6 fL (7.9-10.8); MONOCYTES # (AUTO) 0.4 10^3/uL (0.0-1.0); MONOCYTES % (AUTO) 6.5 %; NEUTROPHILS # (AUTO) 4.4 10^3/uL (1.5-6.6); NEUTROPHILS % (AUTO) 67.6 %; PLT - PLATELET COUNT 312 10^3/uL (130-450); RED BLOOD COUNT 4.01 10^6/uL (4.20-5.40); RED CELL DISTRIBUTION WIDTH 12.7 % (12.0-15.0); WHITE BLOOD COUNT 6.6 x10^3/uL (4.8-10.8)
[2022-10-22 20:05] LABS: ALBUMIN 4.7 g/dL (3.2-5.5); ALBUMIN/GLOBULIN RATIO 1.7 (1.0-2.2); BILIRUBIN,TOTAL 0.5 mg/dL (0.2-1.0); CALCIUM 9.5 mg/dL (8.5-10.3); CREATININE 0.8 mg/dL (0.4-1.0); POTASSIUM 4.1 mmol/L (3.5-5.0); TOTAL PROTEIN 7.4 g/dL (6.7-8.2)
[2022-10-24 06:09] LABS: IMMUNOGLOBULIN A 193 mg/dL (87-352); IMMUNOGLOBULIN G 959 mg/dL (586-1602); IMMUNOGLOBULIN M 134 mg/dL (26-217)
== END 2022-10-22 23:59 | disposition home or self-care (01) ==
LOC: LAB.S 07:00
PROVIDERS: ATTEND Psychiatry & Neurology Neurology
DX: G70.00 Myasthenia gravis without (acute) exacerbation (principal); R76.8 Other specified abnormal immunological findings in serum
CPT/HCPCS: 36415; 80053; 82784; 85025

== ENCOUNTER 2023-02-09 07:09 | Outpatient (CLI) | payer OTHER ==
[2023-02-09 15:19] LABS: BASOPHILS % (AUTO) 0.9 %; EOSINOPHILS # (AUTO) 0.1 10^3/uL (0.0-0.7); EOSINOPHILS % (AUTO) 2.7 %; HCT - HEMATOCRIT 38.6 % (37.0-47.0); HGB - HEMOGLOBIN 12.1 g/dL (12.0-16.0); LYMPHOCYTES # (AUTO) 1.3 10^3/uL (1.5-3.5); LYMPHOCYTES % (AUTO) 29.5 %; MEAN CORPUSCULAR HEMOGLOBIN 32.3 pg (27.0-31.0); MEAN CORPUSCULAR HGB CONC 31.3 g/dL (32.0-36.0); MEAN CORPUSCULAR VOLUME 102.9 fL (81.0-99.0); MEAN PLATELET VOLUME 9.6 fL (7.9-10.8); MONOCYTES # (AUTO) 0.5 10^3/uL (0.0-1.0); MONOCYTES % (AUTO) 10.7 %; NEUTROPHILS # (AUTO) 2.5 10^3/uL (1.5-6.6); PLT - PLATELET COUNT 302 10^3/uL (130-450); RED BLOOD COUNT 3.75 10^6/uL (4.20-5.40); RED CELL DISTRIBUTION WIDTH 13.2 % (12.0-15.0); WHITE BLOOD COUNT 4.4 x10^3/uL (4.8-10.8)
[2023-02-09 15:49] LABS: ALBUMIN 4.4 g/dL (3.2-5.5); ALBUMIN/GLOBULIN RATIO 1.8 (1.0-2.2); BILIRUBIN,TOTAL 0.4 mg/dL (0.2-1.0); CALCIUM 9.2 mg/dL (8.5-10.3); CREATININE 0.6 mg/dL (0.4-1.0); POTASSIUM 4.1 mmol/L (3.5-5.0); TOTAL PROTEIN 6.9 g/dL (6.7-8.2)
[2023-02-10 08:10] LABS: IMMUNOGLOBULIN A (IGA) 190 mg/dL (87-352); IMMUNOGLOBULIN G (IGG) 930 mg/dL (586-1602); IMMUNOGLOBULIN M (IGM) 128 mg/dL (26-217)
== END 2023-02-09 14:44 | disposition home or self-care (01) ==
LOC: LAB.S 07:09
PROVIDERS: ATTEND Psychiatry & Neurology Neurology
DX: G70.00 Myasthenia gravis without (acute) exacerbation (principal)
CPT/HCPCS: 36415; 80053; 81599; 82784; 85025; 86332

== ENCOUNTER 2023-08-16 07:19 | Outpatient (CLI) | payer OTHER ==
[2023-08-16 14:58] LABS: BASOPHILS # (AUTO) 0.1 10^3/uL (0.0-0.1); BASOPHILS % (AUTO) 1.1 %; EOSINOPHILS # (AUTO) 0.2 10^3/uL (0.0-0.7); HCT - HEMATOCRIT 41.4 % (37.0-47.0); HGB - HEMOGLOBIN 13.1 g/dL (12.0-16.0); LYMPHOCYTES # (AUTO) 1.4 10^3/uL (1.5-3.5); LYMPHOCYTES % (AUTO) 22.4 %; MEAN CORPUSCULAR HEMOGLOBIN 33.2 pg (27.0-31.0); MEAN CORPUSCULAR HGB CONC 31.6 g/dL (32.0-36.0); MEAN CORPUSCULAR VOLUME 105.1 fL (81.0-99.0); MEAN PLATELET VOLUME 9.5 fL (7.9-10.8); MONOCYTES # (AUTO) 0.7 10^3/uL (0.0-1.0); MONOCYTES % (AUTO) 10.7 %; NEUTROPHILS % (AUTO) 62.6 %; PLT - PLATELET COUNT 358 10^3/uL (130-450); RED BLOOD COUNT 3.94 10^6/uL (4.20-5.40); RED CELL DISTRIBUTION WIDTH 13.5 % (12.0-15.0); WHITE BLOOD COUNT 6.4 x10^3/uL (4.8-10.8)
[2023-08-16 16:08] LABS: THYROID STIMULATING HORMONE 2.99 uIU/mL (0.34-5.60)
[2023-08-16 16:41] LABS: ALBUMIN 4.6 g/dL (3.2-5.5); ALKALINE PHOSPHATASE 103 IU/L (42-121); ALT ALANINE AMINOTRANSFERASE 35 IU/L (10-60); AST ASPARTATE AMINOTRANSFERASE 25 IU/L (10-42); BILIRUBIN,TOTAL 0.4 mg/dL (0.2-1.0); BUN - BLOOD UREA NITROGEN 22 mg/dL (6-20); CALCIUM 9.4 mg/dL (8.5-10.3); CARBON DIOXIDE - CO2 29 mmol/L (21-32); CHLORIDE 105 mmol/L (101-111); CHOL/HDL RATIO 3.4 (<4.4); CHOLESTEROL 184 mg/dL; CREATININE 0.7 mg/dL (0.6-1.3); GFR - MDRD 86 (>89); GLUCOSE 84 mg/dL (74-104); HDL CHOLESTEROL 54 mg/dL; LDL CHOLESTEROL,CALCULATED 107 mg/dL; POTASSIUM 4.2 mmol/L (3.5-4.5); SODIUM 139 mmol/L (135-145); TOTAL PROTEIN 6.9 g/dL (6.4-8.9); TRIGLYCERIDES 113 mg/dL (48-352); VLDL CHOLESTEROL 23 mg/dL
== END 2023-08-16 07:20 | disposition home or self-care (01) ==
LOC: LAB.S 07:19
PROVIDERS: ATTEND Registered Nurse
DX: Z79.899 Other long term (current) drug therapy (principal); Z13.220 Encounter for screening for lipoid disorders; Z13.29 Encounter for screening for other suspected endocrine disorder
CPT/HCPCS: 36415; 80053; 80061; 83721; 84443; 85025

== ENCOUNTER 2023-11-06 16:44 | Emergency (ER) | payer OTHER ==
--- NOTE | 2023-11-06 17:28 | XRAY Report ---
PROCEDURE: Wrist 3+V LT INDICATIONS: fall/pain TECHNIQUE: 3 views of the wrist were acquired. COMPARISON: None. FINDINGS: Bones: Mildly impacted and comminuted distal radial fracture. No definite intra-articular extension. Minimally displaced ulnar styloid fracture. No suspicious bony lesions. Soft tissues: No suspicious soft tissue calcifications or masses. IMPRESSION: Mildly impacted and comminuted distal radial fracture without definite intra-articular extension. Min imally displaced ulnar styloid fracture. Reviewed by: Kimberly Bentley MD on 11/06/2023 5:27 PM PST Approved by: Kimberly Bentley MD on 11/06/2023 5:27 PM PST Station ID: [id number]
[2023-11-06] MEDS ORDERED: oxyCODONE 5 MG TABLET PO STA (19:02)
[2023-11-06] MEDS ORDERED: oxyCODONE/ACET 5/325 Prepack 4 PO STA (19:02)
--- NOTE | 2023-11-06 19:24 | ED Physician Documentation ---
PD HPI UPPER EXT INJURY - Stated complaint Stated Complaint: LT ARM INJ - Chief complaint Chief Complaint: Trauma Ext - History obtained from History obtained from: Patient - Additonal information Additional information: Patient is a 57-year-old female with a history of osteoporosis presenting for evaluation of left wrist pain. Patient was chasing after her puppy and fell. She did not hit her head or have LOC. She is right-hand dominant. She did recently receive an infusion for osteoporosis. Review of Systems Cardiac: denies: Chest pain / pressure Respiratory: denies: Dyspnea Musculoskeletal: reports: Extremity pain Neurologic: denies: Head injury PD PAST MEDICAL HISTORY - Past Medical History Past Medical History: Yes Cardiovascular: Other Respiratory: None Endocrine/Autoimmune: Other GI: None : Frequency HEENT: Chronic vision loss, Other Psych: Anxiety, Panic attacks, Claustrophobia Musculoskeletal: None Derm: None Other Past Medical History: Myasthnia Gravis - Past Surgical History Past Surgical History: Yes Ortho: Hip replacement, Shoulder arthroplasty, Other /CLINICAL TRIALS MANAGER: Tubal ligation - Present Medications Home Medications: Ambulatory Orders Medication Instructions Recorded Confirmed Calcium Citrate/Vitamin D3 1 each PO DAILY 08/16/17 10/29/23 [Calcium Citrate +Vit D3 Tablet] Glucosamine Sulfate 0 mg PO DAILY PRN 08/16/17 10/29/23 Mv-Min/Iron/Folic/Calcium/Vitk 1 each PO DAILY 08/16/17 10/29/23 [Women's Daily Formula Tablet] Potassium/Calcium/Magnes/Manga 1 each PO DAILY PRN 08/16/17 10/29/23 [Emergen-C Electro Mix Packet] Ibuprofen 200 mg PO PRN PRN 10/29/23 10/29/23 Oxycodone HCl/Acetaminophen 1 each PO Q6H PRN #14 tablet 11/06/23 [Percocet 5-325 mg Tablet] - Allergies Allergies/Adverse Reactions: Allergies Allergy/AdvReac Type Severity Reaction Status Date / Time bee pollen Allergy Unknown Verified 11/06/23 17:01 floride Allergy Unknown Uncoded 11/06/23 17:01 - Social History Does the pt smoke?: No Smoking Status: Never smoker Does the pt drink ETOH?: Yes Does the pt have substance abuse?: No - Immunizations Immunizations are current?: Yes - POLST Patient has POLST: No POLST Status: Full Code PD ED PE NORMAL - General General: Alert and oriented X 3, No acute distress, Well developed/nourished - HEENT HEENT: Atraumatic - Neck Neck: Supple, no meningeal sign - Cardiac Cardiac: Strong equal pulses - Respiratory Respiratory: No respiratory distress - Extremities Extremities: Other (Tenderness and swelling to left wrist, no tenderness over hand, normal range of motion at left elbow, strong radial pulse, motor and sensation intact) - Neuro Neuro: Alert and oriented X 3, No motor deficit, No sensory deficit, Normal speech Results - Vitals Vitals: Vital Signs - 24 hr 11/06/23 11/06/23 16:55 20:23 Temperature 36.0 C L Heart Rate 82 75 Respiratory 16 18 Rate Blood Pressure 137/88 H 131/77 H O2 Saturation 97 98 Oxygen O2 Source [Without Activity] Room air O2 Source Room air PD Medical Decision Making - ED course Complexity details: reviewed results, d/w patient, d/w family ED course: Patient is a 57-year-old female presenting for evaluation of left wrist injury. X-ray was reviewed which shows a distal radius fracture along with an ulnar styloid fracture. At this time I do not see indication for reduction and patient was seen placed into a sugar-tong splint. She was given oxycodone for pain. She understands importance of close follow-up with orthopedic surgery. She is counseled on concerning symptoms to return for. Departure - Departure Disposition: 01 Home, Self Care Clinical Impression: Left wrist fracture Condition: Stable Instructions: ED Fx Wrist General Follow-Up: [facility] [Provider Group] - Within 1 week Prescriptions: Oxycodone HCl/Acetaminophen [Percocet 5-325 mg Tablet] 1 each PO Q6H PRN #14 tablet PRN Reason: pain Comments: You were evaluated after an injury to your wrist and we found 2 areas of fractures in the wrist. We have placed you into a splint and also given you a sling. I sent a prescription for narcotic pain medication to [facility] in [place]. I would recommend close follow-up with the orthopedic clinic and have listed their information here. Please continue with elevation as this will help with swelling. Return to the emergency department with any worsening symptoms or any issues with your splint. I am prescribing a short course of narcotic pain medication for you. These are potentially dangerous and addictive medications that should be used carefully. These medications may constipate you. Take an kebg-nul-zmdnajh stool softener (docusate) twice daily with plenty of water while taking these medications. If you go 24 hours without a bowel movement, take [id number] miralax, per package instructions. Do not drink or drive while taking these medications. If you received narcotic or sedating medications while in the emergency department, do not drive for 24 hours. Store this medication in a safe, secure place and out of reach of children. It is a violation of federal law to give or sell this medication to another person or to use in a manner other than prescribed. The ED will not refill narcotic prescriptions, including prescriptions lost or stolen. To dispose of unwanted medications: 1. [facility] [address] [facility] [place] has a medication drop box. They accept prescription medications (in pill form) Wednesday through Wednesday 9:00 a.m. to 5:00 p.m. 2. The [facility] [employer] accepts prescription medications (in pill form only) for disposal year round. Call for more information. 3. Contact the [facility] for the next [facility] sponsored prescription drug collection event. , [phone], or [phone]; Note that many narcotic pain relievers also contain Tylenol/acetaminophen. Please ensure that your total dose of acetaminophen from all sources does not exceed 3 g (3000 mg) per day. IMPRESSION: Mildly impacted and comminuted distal radial fracture without definite intra- articular extension. Minimally displaced ulnar styloid fracture. Forms: PCP List Discharge Date/Time: 11/06/23 20:23
[2023-11-06 20:27] VITALS: BP 131/77; O2SAT 98
== END 2023-11-06 20:23 | disposition home or self-care (01) ==
LOC: ED 16:44
DX: S52.502A Unspecified fracture of the lower end of left radius, initial encounter for closed fracture (principal); S52.612A Displaced fracture of left ulna styloid process, initial encounter for closed fracture; W01.0XXA Fall on same level from slipping, tripping and stumbling without subsequent striking against object, initial encounter; Y93.02 Activity, running
CPT/HCPCS: 73110; 99283; A9270

== ENCOUNTER 2023-11-16 08:00 | Outpatient (CLI) | payer OTHER ==
--- NOTE | 2023-11-17 11:21 | XRAY Report ---
PROCEDURE: Wrist 3 View LT INDICATIONS: LEFT WRIST FRACTURE TECHNIQUE: 3 views of the wrist were acquired. COMPARISON: X-ray wrist 11/06/2023. FINDINGS: Bones: Impacted and comminuted fracture of the distal radius and fracture of the ulnar styloid is ag ain identified. There is a similar amount of callus formation around the fractures. Soft tissues: Mild soft tissue swelling of the wrist IMPRESSION: Distal radial and ulnar fractures again noted with no discernible changes since prior study Reviewed by: Charbel Chairez MD on 11/16/2023 2:57 PM PST Approved by: Charbel Chairez MD on 11/16/2023 2:57 PM PST Station ID: [id number]
== END 2023-11-16 23:59 | disposition home or self-care (01) ==
LOC: DI.WOS 08:00
PROVIDERS: ATTEND Orthopaedic Surgery
DX: S52.615D Nondisplaced fracture of left ulna styloid process, subsequent encounter for closed fracture with routine healing (principal)

== ENCOUNTER 2023-11-17 09:15 | Day surgery (SDC) | payer OTHER ==
[2023-11-17] MEDS ORDERED: CELECOXIB 100 MG CAPSULE PO ONE (09:21)
[2023-11-17] MEDS ORDERED: ACETAMINOPHEN 500 MG TABLET PO ONE (09:21)
[2023-11-17] MEDS ORDERED: ceFAZolin 2 GM VIAL ONE (09:22)
[2023-11-17] MEDS ORDERED: LACTATED RINGERS 1,000 ML IV ONE (09:36)
[2023-11-17] MEDS ORDERED: BUPIVACAINE 0.5% PF 10 ML VIAL ONE ×2 (09:46→10:33)
--- NOTE | 2023-11-17 09:53 | ANESTHESIA ---
Pre-Anesthesia VS, & Labs - Diagnosis displaced fracture L distal radius - Procedure closed reduction perc pinning L distal radius Vital Signs: Temp Pulse Resp BP Pulse Ox O2 Flow Rate 36.9 C 60 18 150/89 H 100 11/17/23 09:36 11/17/23 09:36 11/17/23 09:36 11/17/23 09:36 11/17/23 09:36 Height: 5 ft 7 in Weight (kg): 68 kg Body Mass Index: 23.4 BMI Classification: Normal - NPO >8 hours - Is Patient ?: No Home Medications and Allergies Home Medications: Ambulatory Orders riTUXimab [Rituxan] 400 mg IV ONCE 11/17/23 Calcium Citrate/Vitamin D3 [Calcium Citrate +Vit D3 Tablet] 1 each PO DAILY 08/16/17 Glucosamine Sulfate 0 mg PO DAILY PRN 08/16/17 Mv-Min/Iron/Folic/Calcium/Vitk [Women's Daily Formula Tablet] 1 each PO DAILY 08/16/17 Potassium/Calcium/Magnes/Manga [Emergen-C Electro Mix Packet] 1 each PO DAILY PRN 08/16/17 Ibuprofen 200 mg PO PRN PRN 10/29/23 riTUXimab [Rituxan] 400 mg IV ONCE 11/17/23 Allergies/Adverse Reactions: Allergies Allergy/AdvReac Type Severity Reaction Status Date / Time bee pollen Allergy Unknown Verified 11/06/23 17:01 floride Allergy Unknown Uncoded 11/06/23 17:01 Anes History & Medical History - Anesthetic History Anesthesia Complications: reports: No previous complications Family history of Anesthesia Complications: Denies Family history of Malignant Hyperthermia: Denies - Medical History Cardiovascular: reports: Other Pulmonary: reports: Other (hx of hemiparalysis post thymectomy) Gastrointestinal: reports: None Urinary: reports: Frequency Neuro: reports: Other (myasthenia gravis, grade 2 (per pt's report)) Musculoskeletal: reports: None Endocrine/Autoimmune: reports: Other Skin: reports: None Smoking Status: Former smoker Psychosocial: reports: Alcohol History of Cancer?: No - Surgical History Cardiothoracic: reports: Other (thymectomy) Gynecologic: reports: Tubal ligation Orthopedic: reports: Hip replacement, Shoulder arthroplasty, Other Exam General: Alert, Oriented x3, Cooperative Dental: WNL Mouth Openin Fingerbreadth Neck Mobility: Normal Mallampati classification: II Thyromental Distance: 4-6 cm Respiratory: Lungs clear Cardiovascular: Regular rate Plan Anesthesia Type: General (no use of muscle relaxant planned) Consent for Procedure(s) Verified and Reviewed: Yes Code Status: Attempt Resuscitation ASA classification: 2-Mild systemic disease Is this case an emergency?: No
[2023-11-17] MEDS ORDERED: NALOXONE 0.4 MG/ML VIAL IVP PRN (09:55)
[2023-11-17] MEDS ORDERED: ONDANSETRON 4 MG/2 ML VIAL IVP PRN ×2 (09:55→12:07)
[2023-11-17] MEDS ORDERED: ATROPINE ABBOJECT 1 MG/10 ML SYRINGE IVP PRN (09:55)
[2023-11-17] MEDS ORDERED: METOCLOPRAMIDE 10 MG/2 ML VIAL IVP PRN (09:55)
[2023-11-17] MEDS ORDERED: HYDROmorphone 0.5 MG/0.5 ML SYRINGE IVP PRN (09:55)
[2023-11-17] MEDS ORDERED: MORPHINE 2 MG/ML CARPUJECT IVP PRN (09:55)
[2023-11-17] MEDS ORDERED: ePHEDrine 50 MG/ML VIAL IVP PRN (09:55)
[2023-11-17] MEDS ORDERED: MIDAZOLAM 2 MG/2 ML VIAL ONE (09:58)
[2023-11-17] MEDS ORDERED: PROPOFOL 200 MG/20 ML VIAL IVP ONE ×2 (09:58→10:42)
[2023-11-17] MEDS ORDERED: LACTATED RINGERS 1,000 ML IV SCH (10:00)
[2023-11-17] MEDS ORDERED: fentaNYL 100 MCG/2 ML VIAL ONE ×2 (10:33→11:13)
[2023-11-17] MEDS ORDERED: BUPIVACAINE 0.5% PF 10 ML VIAL IM ONE (10:45)
[2023-11-17] MEDS ORDERED: LACTATED RINGERS 200 ML IV ONE (10:57)
[2023-11-17] MEDS ORDERED: oxyCODONE 5 MG TABLET PO PRN (11:03)
[2023-11-17] MEDS ORDERED: ACETAMINOPHEN 500 MG TABLET PO PRN (11:03)
--- NOTE | 2023-11-17 11:03 | OPERATIVE REPORT ---
Operative Report - General Procedure Date: 11/17/23 Planned Procedure: Closed reduction left distal radius with percutaneous pinning distal radius Pre-Op Diagnosis: Closed, displaced left distal radius and ulnar styloid fracture Procedure Performed: Closed reduction left distal radius with percutaneous K wire fixation Post Op Diagnosis: Same as preoperative diagnosis - Procedure Note Primary Surgeon: Emil Hilliard MD Secondary Surgeon: Logan Dubois MD Anesthesia Provider: Florence Mayers CRNA Anesthesia Technique: General ET tube Estimated Blood Loss (mL): 1 Indications: This is a 57-year-old left hand nondominant woman who fell and tripped chasing after her dog was chasing a deer about 10 days ago. She had isolated injury to her left wrist. She had isolated pain to left wrist with swelling. She was initially seen in the emergency room and seen in our office yesterday for first orthopedic visit. She had swelling and tenderness about the left distal radius. X-rays show a displaced left distal radius fracture, mostly extra-articular wi th angulation on lateral view. An informed consent was obtained for the procedure. Findings: Displaced, mildly comminuted extra-articular fracture left distal radius with u lnar styloid fracture Complications: None - Other Other Information/Narrative: The patient was brought to the operating room and was placed in a supine position with the left arm on a arm extension table.After satisfactory anesthesia was achieved, The right upper extremity was prepped and draped in a sterile manner in the usual fashion. The C-arm image intensifier was utilized and covered with a sterile drape. A timeout procedure was performed by the entire operating room team and all were in agreement. Finger traps were applied to all 5 fingers and a traction bow as well. Longitudinal traction was applied, direct manipulation of the fracture site over a sterile bump. The C-arm image intensifier showed good alignment and a percutaneous pinning was performed with 0.062 K wires. The bare area of the radial styloid was engaged and pin was inserted from the styloid across the fracture to achieve bicortical fixation. An additional K wire from the radial styloid was also inserted to provide 2 bicortical K wires from the radial styloid. 1 additional K wires were inserted from the ulnar corner of the distal radius distally. Biplanar and oblique imaging was obtained and there was good alignment of the fixation and fracture. The K wires were cut external to skin and covered with sterile balls. A well-padded short arm fiberglass splint was applied with gauze padding around the K wires. The patient tolerated the procedure well. No tourniquet was utilized.A physician workforce development assistant was felt to be medically necessary to help with the fracture reduction and splint application
[2023-11-17] MEDS: fentaNYL 100 MCG/2 ML VIAL IVP PRN ×2 (11:16→11:22)
[2023-11-17] MEDS ORDERED: oxyCODONE 5 MG TABLET ONE ×2 (11:45→13:19)
[2023-11-17] MEDS ORDERED: ONDANSETRON 4 MG/2 ML VIAL ONE (12:05)
[2023-11-17] MEDS ORDERED: ONDANSETRON ODT 4 MG TABLET TL PRN (12:07)
[2023-11-17 13:02] VITALS: BP 134/85; O2SAT 99
--- NOTE | 2023-11-17 15:24 | ANESTHESIA POST OP EVALUATION ---
Anesthesia Post Eval - Post Anesthesia Eval Vitals: Last Vital Signs Temp 36.4 C L 11/17/23 12:26 Pulse 59 L 11/17/23 12:52 Resp 14 11/17/23 12:52 BP 134/85 H 11/17/23 12:52 Pulse Ox 99 11/17/23 12:52 O2 Flow Rate CV Function Including HR & BP: Stable Pain Control: Satisfactory Nausea & Vomiting: Negative Mental Status: Baseline Respiratory Status: Airway Patent Hydration Status: Satisfactory Anesthesia Complications: None
--- NOTE | 2023-11-18 09:13 | XRAY Report ---
PROCEDURE: OR C-Arm Procedure INDICATIONS: Closed Reduction left distal radius w/perc pinning FLUORO TIME: 0:12 MIN TECHNIQUE: Multiple intraoperative fluoroscopy images. COMPARISON: X-ray left wrist, 11/16/2023, 11/06/2023. FINDINGS: Multiple intraoperative fluoroscopy images demonstrate ORIF of distal radial metaphyseal fr acture. Ulnar styloid fracture is noted. IMPRESSION: ORIF of distal radial metaphyseal fracture. Reviewed by: Calvin Ram MD on 11/18/2023 9:12 AM PST Approved by: Calvin Ram MD on 11/18/2023 9:12 AM PST Station ID: [id number]
== END 2023-11-17 09:16 | disposition home or self-care (01) ==
LOC: SDS 09:15
PROVIDERS: ATTEND Orthopaedic Surgery
DX: S52.532A Colles' fracture of left radius, initial encounter for closed fracture (principal); Z87.891 Personal history of nicotine dependence
CPT/HCPCS: 25606; A9270; C1713; J7120

== ENCOUNTER 2023-11-23 08:00 | Outpatient (CLI) | payer OTHER ==
--- NOTE | 2023-11-23 15:55 | XRAY Report ---
PROCEDURE: Wrist 3 View LT INDICATIONS: LEFT WRIST FRACTURE TECHNIQUE: 3 views of the wrist were acquired. COMPARISON: 11/17/2023, 11/16/2023 and 11/06/2023. FINDINGS: Bones: Post-ORIF changes are noted in distal radius with [address] Comminuted and im pacted intra-articular fracture of distal radius is seen. Minimally displaced ulnar styloid fracture is also. No new fracture or dislocation. No gross hardware loosening or failure. No suspicious bony l esions. Soft tissues: No suspicious soft tissue calcifications or masses. IMPRESSION: Comminuted and impacted distal radial fracture with interval fixation. No new fracture or dislocation . No gross hardware loosening or failure. Stable appearing ulnar styloid fracture. Reviewed by: Trell Conklin MD on 11/23/2023 3:53 PM PST Approved by: Trell Conklin MD on 11/23/2023 3:53 PM PST Station ID: [id number]
== END 2023-11-23 23:59 | disposition home or self-care (01) ==
LOC: DI.WOS 08:00
PROVIDERS: ATTEND Orthopaedic Surgery
DX: S52.532D Colles' fracture of left radius, subsequent encounter for closed fracture with routine healing (principal); S52.612D Displaced fracture of left ulna styloid process, subsequent encounter for closed fracture with routine healing

== ENCOUNTER 2023-12-20 09:45 | Outpatient (CLI) | payer OTHER ==
--- NOTE | 2023-12-20 14:19 | XRAY Report ---
PROCEDURE: Wrist 3 View LT INDICATIONS: LEFT WRIST FRACTURE TECHNIQUE: 3 views of the wrist were acquired. COMPARISON: 11/23/2023. FINDINGS: Bones: Redemonstration of distal radial fracture status post fixation with [address] There ap pears to be interval healing with a less distinct fracture line. Redemonstration of ulnar styloid fra cture.. No suspicious bony lesions. Soft tissues: No suspicious soft tissue calcifications or masses. IMPRESSION: Continued healing of distal radial fracture status post ORIF. We demonstration of ulnar styloid fract ure. Reviewed by: Gopi Rosas MD on 12/20/2023 2:17 PM PST Approved by: Gopi Rosas MD on 12/20/2023 2:17 PM PST Station ID: [id number]
== END 2023-12-20 23:59 | disposition home or self-care (01) ==
LOC: DI.WOS 09:45
PROVIDERS: ATTEND Orthopaedic Surgery
DX: S52.532D Colles' fracture of left radius, subsequent encounter for closed fracture with routine healing (principal); S52.612D Displaced fracture of left ulna styloid process, subsequent encounter for closed fracture with routine healing

== ENCOUNTER 2024-01-05 07:58 | Outpatient (CLI) | payer OTHER ==
--- NOTE | 2024-01-06 07:34 | Mammography Report ---
BILATERAL DIGITAL SCREENING MAMMOGRAM 3D/2D WITH EXAGGERATED CC: 01/05/2024 CLINICAL: Routine screening. Comparison is made to exams dated: 06/09/2021 mammogram and 12/13/2017 ultrasound - [facility]. Both breasts are heterogeneously dense, which may obscure small masses (category c / 51-75% glandular tissue). No significant masses, calcifications, or other findings are seen in either breast. There has been no significant interval change. IMPRESSION: NEGATIVE There is no mammographic evidence of malignancy. A 1 year screening mammogram is recommended. Based on the Tyrer Cuzick model (a risk assessment model) the patient's lifetime risk is 13.8% and he r 10 year risk is 5.1%. According to the ACR, ACS, and NCCN guidelines, an annual breast MRI exam alphonse ng with mammogram is recommended if the patient's lifetime risk is 20% or greater. This exam was interpreted at Station ID: [id number]. NOTE: For mammograms, a report in lay terms will be sent to the patient. Approximately 15% of breast malignancies will not be visualized mammographically. In the management of a palpable breast mass, a negative mammogram must not discourage biopsy of a clinically suspicious lesion. Electronically Signed By: Carlitos li/jessie:01/05/2024 11:43:53 ACR BI-RADS Category 1: Negative 3341F PARENCHYMAL PATTERN: (D) - The breast(s) demonstrate(s) heterogeneously dense fibroglandular [facility]. BI-RADS CATEGORY: (1) - 1 RECOMMENDATION: (ANNUAL) - Recommend routine annual screening mammography. [id number] 1 year screening LATERALITY: (B)
== END 2024-01-05 07:59 | disposition home or self-care (01) ==
LOC: DI.S 07:58
PROVIDERS: ATTEND Registered Nurse
DX: Z12.31 Encounter for screening mammogram for malignant neoplasm of breast (principal); R92.333 Mammographic heterogeneous density, bilateral breasts

== ENCOUNTER 2024-01-11 09:00 | Outpatient (CLI) | payer OTHER ==
--- NOTE | 2024-01-11 16:20 | XRAY Report ---
PROCEDURE: Wrist 3 View LT INDICATIONS: LEFT WRIST FRACTURE TECHNIQUE: 3 views of the wrist were acquired. COMPARISON: 12/20/2023. FINDINGS: Bones: Status post interval percutaneous pin fixation hardware removal of previously described commi nuted intra-articular fracture of the distal left radius. Stable alignment. No change in ulnar styl oid tip fracture. Increased bridging callous formation consistent with fracture healing. Soft tissues: No suspicious soft tissue calcifications or masses. IMPRESSION: Continued healing of distal left radial fracture status post removal of percutaneous fixation pins. Stable alignment. Redemonstration of distal ulnar styloid tip fracture. Reviewed by: Carlitos Quintana MD on 01/11/2024 3:18 PM MICHELLE Approved by: Carlitos Quintana MD on 01/11/2024 3:18 PM MICHELLE Station ID: [id number]
== END 2024-01-11 23:59 | disposition home or self-care (01) ==
LOC: DI.WOS 09:00
PROVIDERS: ATTEND Orthopaedic Surgery
DX: S52.532D Colles' fracture of left radius, subsequent encounter for closed fracture with routine healing (principal)

== ENCOUNTER 2024-04-10 12:53 | Emergency (ER) | payer OTHER ==
--- NOTE | 2024-04-10 14:09 | ED Physician Documentation ---
PD HPI UPPER EXT INJURY - Stated complaint Stated Complaint: GLF, LT SHOULDER INJ - Chief complaint Chief Complaint: Ext Problem - History obtained from History obtained from: Patient - Additonal information Additional information: The pt comes to the ED with CC of GLF and L shoulder pain after tripping while stepping over a chain. She states she fell on her arm, which was outstretched in the upward position. This happened about an hour ago, and she can't lift her arm because it hurts too much. No numbness or tingling. No other injuries. PD PAST MEDICAL HISTORY - Past Medical History Cardiovascular: Other Respiratory: Other Neuro: Other Endocrine/Autoimmune: Other GI: None : Frequency HEENT: Chronic vision loss, Other Psych: Anxiety, Panic attacks, Claustrophobia Musculoskeletal: None Derm: None - Past Surgical History Past Surgical History: Yes Ortho: Hip replacement, Shoulder arthroplasty, Other /[employer]: Tubal ligation Cardiovascular: Other - Present Medications Home Medications: Ambulatory Orders Medication Instructions Recorded Confirmed Calcium Citrate/Vitamin D3 1 each PO DAILY 08/16/17 04/10/24 [Calcium Citrate +Vit D3 Tablet] Glucosamine Sulfate 0 mg PO DAILY PRN 08/16/17 04/10/24 Mv-Min/Iron/Folic/Calcium/Vitk 1 each PO DAILY 08/16/17 04/10/24 [Women's Daily Formula Tablet] Potassium/Calcium/Magnes/Manga 1 each PO DAILY PRN 08/16/17 04/10/24 [Emergen-C Electro Mix Packet] Ibuprofen 200 mg PO PRN PRN 10/29/23 04/10/24 buPROPion [Wellbutrin Xl] 150 mg PO DAILY 11/17/23 04/10/24 riTUXimab [Rituxan] 400 mg IV ONCE 11/17/23 04/10/24 HYDROcod/ACETAM 5/325 [Gordon 5/325] 1 - 2 tablet PO Q6H PRN #20 tablet 04/10/24 - Allergies Allergies/Adverse Reactions: Allergies Allergy/AdvReac Type Severity Reaction Status Date / Time bee pollen Allergy Unknown Verified 04/10/24 13:15 floride Allergy Unknown Uncoded 04/10/24 13:15 - Social History Does the pt smoke?: No Smoking Status: Never smoker Does the pt drink ETOH?: Yes Does the pt have substance abuse?: No - Immunizations Immunizations are current?: Yes - POLST Patient has POLST: No POLST Status: Full Code PD ED PE NORMAL - Vitals Vital signs reviewed: Yes - General General: Alert and oriented X 3, No acute distress, Well developed/nourished - HEENT HEENT: Atraumatic, EOMI, Moist mucous membranes - Neck Neck: Supple, no meningeal sign - Cardiac Cardiac: Strong equal pulses - Respiratory Respiratory: No respiratory distress - Derm Derm: Normal color, Warm and dry, No rash - Extremities Extremities: No deformity, Other (Tenderness, limited ROM R shoulder) - Neuro Neuro: Alert and oriented X 3, No motor deficit, No sensory deficit - Psych Psych: Normal mood, Normal affect Results - Vitals Vitals: Vital Signs - 24 hr 04/10/24 04/10/24 13:09 14:17 Temperature 36.2 C L 36.2 C L Heart Rate 60 66 Respiratory 16 20 Rate Blood Pressure 138/87 H 153/91 H O2 Saturation 95 99 Oxygen O2 Source [Without Activity] Room air O2 Source Room air - Rads (name of study) R shoulder XR series Relevant Findings:: Final report received, See rad report PD Medical Decision Making - ED course Complexity details: reviewed results, re-evaluated patient, considered differential, d/w patient, d/w family ED course: The pt was sent for XR, which showed a proximal humerus fracture, nondisplaced. She had a similar injury on the other side in recent years, so she brought her own sling and swathe, which we placed. She was feeling better after symptomatic management. I have given her orthopedic follow-up, though I expect this injury will be nonsurgical. Departure - Departure Disposition: 01 Home, Self Care Clinical Impression: Proximal humerus fracture Qualifiers: Encounter type: initial encounter Fracture type: closed Fracture morphology: unspecified fracture morphology Laterality: left Qualified Code(s): S42.202A - Unspecified fracture of upper end of left humerus, initial encounter for closed fracture Condition: Stable Instructions: ED Fx Shoulder Follow-Up: Junior Paniagua MD [Provider Admit Priv/Credential] - Prescriptions: HYDROcod/ACETAM 5/325 [Gordon 5/325] 1 - 2 tablet PO Q6H PRN #20 tablet PRN Reason: Pain Comments: Your x-rays show a break of the upper part of the humerus, your upper arm bone. You have been placed in your sling and immobilizer here in the ED and started on pain medication. Most of these fractures are nonsurgical and just need time to heal. Because we cannot cast this area, the sling and strep are the best way to keep the shoulder from moving. I have sent a prescription for pain medication to [facility] in [place] at your request. Please call orthopedic clinic either this afternoon or first thing tomorrow morning to set up a follow-up appointment. You should wear the sling and swath until cleared to go without it by orthopedics. Forms: PCP List Discharge Date/Time: 04/10/24 14:17
[2024-04-10] MEDS: HYDROcod/ACETAM 5/325 MG TABLET PO STA (14:11)
[2024-04-10 14:20] VITALS: BP 153/91; O2SAT 99
--- NOTE | 2024-04-10 14:36 | XRAY Report ---
PROCEDURE: Shoulder 2+V LT INDICATIONS: left shoulder injury TECHNIQUE: 3 views of the shoulder were acquired. COMPARISON: None. FINDINGS: Bones: There is an impacted and otherwise nondisplaced humeral neck fracture without significant vis ible comminution. No definite intra-articular extension. The glenohumeral joint remains intact. No AC joint separation. The visible ribs are intact. Soft tissues: No suspicious soft tissue calcifications. The visualized lungs are within normal limi ts. IMPRESSION: Impacted and nondisplaced humeral neck fracture. Reviewed by: Carmen Joya MD on 04/10/2024 2:35 PM PDT Approved by: Carmen Joya MD on 04/10/2024 2:35 PM PDT Station ID: [id number]
== END 2024-04-10 14:17 | disposition home or self-care (01) ==
LOC: ED 12:53
DX: S42.202A Unspecified fracture of upper end of left humerus, initial encounter for closed fracture (principal); W01.0XXA Fall on same level from slipping, tripping and stumbling without subsequent striking against object, initial encounter; Z79.899 Other long term (current) drug therapy
CPT/HCPCS: 73030; 99283; A9270